=== PATIENT | female | born 1955 | race Two or more races ===

== ENCOUNTER 2019-08-08 11:05 | Inpatient (IN) | payer MEDICAID ==
[~2019-08-08] VITALS: Ht 154.9 cm; Wt 89.1 kg
[2019-08-08 14:25] LABS: Basophils # (auto) 0 uL; Basophils % (auto) 0.2 % (0.0-2.0); Eosinophils # (auto) 0 uL; Eosinophils % (auto) 0.2 % (0.0-7.0); Hematocrit 29.2 % (36.0-46.0); Hemoglobin 9.8 g/dL (12.2-16.2); Lymphocytes # (auto) 0.6 uL; Lymphocytes % (auto) 13.8 % (10.0-50.0); Mean Corpuscular Hemoglobin 35.9 pg (28.0-32.0); Mean Corpuscular Hgb Conc. 33.7 g/dL (32.0-36.0); Mean Corpuscular Volume 106.6 fL (80.0-100.0); Monocytes # (auto) 0.3 uL; Monocytes % (auto) 7.8 % (0.0-12.0); Neutrophils # (auto) 3.3 uL; Nucleated Red Blood Cells % 0.2 %; Platelet Count (auto) 118 10^3/uL (140-450); Red Blood Cells 2.74 10^6/uL (4.0-5.20); White Blood Cell 4.2 10^3/uL (4.4-10.8)
[2019-08-08 14:37] LABS: Albumin 2.4 g/dL (3.4-5.0); Anion Gap 6 (5-15); Blood Urea Nitrogen 25 mg/dL (7-18); Carbon Dioxide 22 mmol/L (21-32); Chloride 106 mmol/L (98-107); Glucose 158 mg/dL (74-106); Magnesium 1.6 mg/dL (1.6-2.6); Sodium 134 mmol/L (136-145)
[2019-08-08 14:44] LABS: Alanine Aminotransferase 30 U/L (13-56); Alkaline Phosphatase 133 U/L (45-117); Aspartate Aminotransferase 33 U/L (15-37); BUN/Creatinine Ratio 23.8; GFR African American 68 mL/min; GFR Non-African American 56 mL/min
[2019-08-08 14:58] LABS: Potassium 5.6 mmol/L (3.5-5.1)
[2019-08-08 16:37] LABS: Urine Bacteria FEW /hpf (None Seen); Urine Blood Negative /uL (Negative); Urine Specific Gravity 1.011 (1.001-1.035); Urine WBC 1 /hpf (0 - 5)
[2019-08-08 16:47] LABS: Alcohol, Urine < 3.0 mg/dL (0-5); Amphetamine Screen, Urine NEGATIVE (NEGATIVE); Barbiturate Scree,Urine NEGATIVE (NEGATIVE); Benzodiazephine Screen, Urine NEGATIVE (NEGATIVE); Cannabinoid Screen, Urine NEGATIVE (NEGATIVE); Cocaine Screen, Urine NEGATIVE (NEGATIVE); Opiate Scree,Urine NEGATIVE (NEGATIVE); Phencyclidine Screen, Urine NEGATIVE (NEGATIVE)
[2019-08-08] MEDS ORDERED: MORPHINE SULF INJ 2 MG/ML SYRINGE 1ML IV PRN (19:00)
[2019-08-08] MEDS ORDERED: NITROGLYCERIN 0.4 MG SL TAB SL PRN (19:00)
[2019-08-08] MEDS ORDERED: SODIUM ZIRCONIUM CYCL 10 GM PAK PO ONE (19:00)
[2019-08-08] MEDS ORDERED: DEXTROSE (50%) 50ML SYRG IV PRN (19:00)
[2019-08-08] MEDS: cefTRIAXone 1GM/50ML D5W 50 ML IV SCH (19:47)
[2019-08-08] MEDS ORDERED: cefTRIAXone 1GM/50ML D5W 50 ML IV SCH (21:00)
--- NOTE | 2019-08-08 21:00 | NUR ---
received pt from er nurse poc reviewed
[2019-08-08] MEDS: InsuLIN REG 1unit/0.01ml Soln (100units/ml) SC SCH (22:00)
[2019-08-08] MEDS: PROPRANOLOL HCL 20 MG TAB PO SCH (22:00)
[2019-08-08 22:28] VITALS: BP 105/54
[2019-08-08 23:30] VITALS: BP 115/57
[2019-08-09] MEDS: ACCU-CHEK COMFORT CURVE STRIP VI SCH ×5 (00:34→21:13)
[2019-08-09 05:31] VITALS: BP 115/57
[2019-08-09] MEDS: InsuLIN REG 1unit/0.01ml Soln (100units/ml) SC SCH ×4 (06:13→21:12)
[2019-08-09 06:45] LABS: Basophils # (auto) 0 uL; Basophils % (auto) 0.4 % (0.0-2.0); Eosinophils # (auto) 0 uL; Hemoglobin 8.4 g/dL (12.2-16.2); Lymphocytes # (auto) 0.4 uL; Monocytes # (auto) 0.2 uL; Neutrophils # (auto) 1.3 uL; Nucleated Red Blood Cells % 0.1 %
[2019-08-09 06:47] LABS: Eosinophils % (auto) 1.7 % (0.0-7.0); Hematocrit 24.6 % (36.0-46.0); Lymphocytes % (auto) 19.1 % (10.0-50.0); Mean Corpuscular Hemoglobin 35.9 pg (28.0-32.0); Mean Corpuscular Hgb Conc. 34.1 g/dL (32.0-36.0); Mean Corpuscular Volume 105.1 fL (80.0-100.0); Monocytes % (auto) 12.4 % (0.0-12.0); Neutrophils % (auto) 66.4 % (37.0-80.0); Platelet Count (auto) 74 10^3/uL (140-450); Red Blood Cells 2.34 10^6/uL (4.0-5.20); Red Cell Distribution Width 16.7 % (11.8-14.3)
[2019-08-09 06:59] LABS: INR 1.17 (0.9-1.15); Partial Thromboplastin Time 26.1 sec (23.64-32.05)
[2019-08-09 07:01] LABS: Albumin 2.1 g/dL (3.4-5.0); Calcium 8.8 mg/dL (8.5-10.1); Potassium 4.2 mmol/L (3.5-5.1)
[2019-08-09 07:05] LABS: BUN/Creatinine Ratio 26.7; Bilirubin, Total 0.5 mg/dL (0.2-1.0); Total Protein 5.9 g/dL (6.4-8.2)
[2019-08-09 08:00] VITALS: BP 104/54
--- NOTE | 2019-08-09 08:00 | NUR ---
ASSESSMENT NOTE PATIENT IS ALERT ORIENTED X4, RESTING IN BED COMFORTABLY, ABLE TO SELF REPOSITION AND VERBALIS HER DEMANDS, HGB 8.4, VERIFY WITH PT THE COLOR OF HER STOOL STATED BLACK THAT WAS YESTERDAY> ENCOURAGE PT NOT TO EAT OR DRINK TILL THE GI MD SEE HER, IN CASE IF HE WILL DO SCOPE, PT VERBALIS UNDERSTANDING, PT SPEAK SOME SWEDISH BUT WAS ABLE TO FOLLOW, CALL LIGHT WITHIN REACH
[2019-08-09] MEDS ORDERED: DOCU-94 PO (08:02)
[2019-08-09] MEDS ORDERED: SPIR100T4 PO (08:02)
[2019-08-09] MEDS ORDERED: PANT40TA2 PO (08:02)
--- NOTE | 2019-08-09 08:30 | NUR ---
PAGE DR DUBOSE
[2019-08-09 09:00] VITALS: BP 108/44
--- NOTE | 2019-08-09 09:00 | NUR ---
FAMILY PATIENT'S DAUGHTER EVELIA AT BED SIDE, AWARE OF HER PT CONDITION
[2019-08-09] MEDS: PANTOPRAZOLE 40 MG TAB PO SCH (09:05)
[2019-08-09] MEDS: cefTRIAXone 1GM/50ML D5W 50 ML IV SCH (09:06)
[2019-08-09] MEDS: PROPRANOLOL HCL 20 MG TAB PO SCH ×2 (09:07→21:12)
--- NOTE | 2019-08-09 12:30 | NUR ---
PAGE DR DUBOSE
[2019-08-09 12:50] LABS: Hepatitis A Ab IgM Negative; Hepatitis B Core IgM Negative; Hepatitis B Surface Antigen Negative (Negative)
[2019-08-09 12:51] LABS: Hepatitis C Antibody Negative (Negative)
--- NOTE | 2019-08-09 13:06 | NUR ---
PER CAREER DEVELOPMENT DIRECTOR DR DUBOSE IS NOT AVAILABLE TODAY
[2019-08-09 13:07] VITALS: BP 108/48
--- NOTE | 2019-08-09 13:30 | NUR ---
DR FLOYD PEREZ CALLED BACK MADE AWARE THAT DR SEDRICK PUGH IS NOT AVAILABLE AND FOR HIM TO DECIDE IF LET US TO CALL DR VALLES, DR FLOYD GARRETT SAID I WILL COME AND SEE MY PT FIRST
--- NOTE | 2019-08-09 16:40 | NUR ---
DR FLOYD GARRETT AT BED SIDE, EXPLAIN TO PT THAT FAT LIVER IT GET WORSE WITH DM, PT STATED THAT SOME FAMILY MEMBER HAS FATTY LIVER, PT DENIES THAT HER STOOL IS BLACK, DR FLOYD GARRETT INFORM PT THAT SHE IS NOT BLEEDING AND SHE CAN EAT, AND WILL FOLLOW ON THE HGB TOMORROW
[2019-08-09 17:09] VITALS: BP 101/43
--- NOTE | 2019-08-09 18:39 | NUR ---
PT CONTINUE STABLE, NO DISTRESS NOTED ,CONTINUE MONITORING
--- NOTE | 2019-08-09 19:54 | NUR ---
received pt from day rn poc reviewed
[2019-08-09 22:26] VITALS: BP 134/47
--- NOTE | 2019-08-10 02:42 | NUR ---
resting with eyes closed no c/o discomfort
[2019-08-10 05:54] VITALS: BP 100/40
[2019-08-10 06:33] LABS: Basophils # (auto) 0 uL; Eosinophils # (auto) 0 uL; Hemoglobin 8.6 g/dL (12.2-16.2); Lymphocytes # (auto) 0.5 uL; Mean Corpuscular Hemoglobin 36.4 pg (28.0-32.0); Monocytes # (auto) 0.2 uL; Red Blood Cells 2.36 10^6/uL (4.0-5.20)
[2019-08-10 06:36] LABS: Basophils % (auto) 0.6 % (0.0-2.0); Eosinophils % (auto) 1.1 % (0.0-7.0); Lymphocytes % (auto) 24.7 % (10.0-50.0); Mean Corpuscular Hgb Conc. 34.3 g/dL (32.0-36.0); Monocytes % (auto) 10.6 % (0.0-12.0); Neutrophils # (auto) 1.2 uL; Nucleated Red Blood Cells % 0.4 %; Platelet Count (auto) 70 10^3/uL (140-450); Red Cell Distribution Width 16.3 % (11.8-14.3)
[2019-08-10 06:41] LABS: BUN/Creatinine Ratio 17.6; Calcium 8.5 mg/dL (8.5-10.1); Potassium 4.3 mmol/L (3.5-5.1)
[2019-08-10] MEDS: ACCU-CHEK COMFORT CURVE STRIP VI SCH ×4 (06:53→22:30)
[2019-08-10] MEDS: InsuLIN REG 1unit/0.01ml Soln (100units/ml) SC SCH ×4 (06:54→22:30)
[2019-08-10 06:59] LABS: Bilirubin, Total 0.8 mg/dL (0.2-1.0); Total Protein 5.9 g/dL (6.4-8.2)
--- NOTE | 2019-08-10 06:59 | NUR ---
report given to am nurse poc reviewed
--- NOTE | 2019-08-10 07:48 | NUR ---
PATIENT ROUNDS PATIENT LYING IN BED, NO DISTRESS NOTED, RR EQUAL AND NONLABORED. BED IN LOWEST POSITION ,SIDE RAILS UP X2, CALL LIGHT WITHIN REACH WILL CONTINUE TO MONITOR.
[2019-08-10 08:00] VITALS: BP 97/49
--- NOTE | 2019-08-10 08:00 | NUR ---
DR GARRETT IN TO SEE PATIENT
[2019-08-10 09:25] VITALS: BP 97/49
[2019-08-10] MEDS: PROPRANOLOL HCL 20 MG TAB PO SCH ×2 (10:00→22:30)
[2019-08-10] MEDS: PANTOPRAZOLE 40 MG TAB PO SCH (10:13)
[2019-08-10] MEDS: cefTRIAXone 1GM/50ML D5W 50 ML IV SCH (10:13)
[2019-08-10 13:11] VITALS: BP 107/78
[2019-08-10 17:34] VITALS: BP 92/48
--- NOTE | 2019-08-10 19:20 | NUR ---
Opening Shift Note Assumed care of patient, awake and alert. No S/S of distress/SOB or pain. Family at the bedside. Instructed on POC and to call for assist PRN, will continue to monitor for changes Q1hr and PRN.
[2019-08-10 22:02] VITALS: BP 105/53
[2019-08-11 05:30] VITALS: BP 100/45
[2019-08-11 06:43] LABS: Hematocrit 24.2 % (36.0-46.0); Hemoglobin 8.3 g/dL (12.2-16.2)
[2019-08-11 06:46] LABS: Mean Corpuscular Hgb Conc. 34.3 g/dL (32.0-36.0); Platelet Count (auto) 68 10^3/uL (140-450); Red Cell Distribution Width 16.1 % (11.8-14.3)
[2019-08-11] MEDS: InsuLIN REG 1unit/0.01ml Soln (100units/ml) SC SCH ×4 (06:49→21:52)
[2019-08-11] MEDS: ACCU-CHEK COMFORT CURVE STRIP VI SCH ×4 (06:49→21:52)
[2019-08-11 07:01] LABS: White Blood Cell 1.8 10^3/uL (4.4-10.8)
[2019-08-11 07:02] LABS: Band Neutrophils % (manual) 0; Basophils % (manual) 0 (0.0-2.0); Blast Cells 0; Metamyelocytes % 0; Myelocytes % 0; Promyelocytes % 0; Reactive Lymphocytes 0
[2019-08-11 07:05] LABS: BUN/Creatinine Ratio 19.5; Calcium 8.1 mg/dL (8.5-10.1); Potassium 4.4 mmol/L (3.5-5.1)
--- NOTE | 2019-08-11 07:07 | NUR ---
Chandrika from chemistry called with critical WBC 1.8, Dr. Swanson notified. Awaiting orders. Will endorse to yony REINOSO.
[2019-08-11 07:08] LABS: Bilirubin, Total 0.7 mg/dL (0.2-1.0); Total Protein 5.7 g/dL (6.4-8.2)
[2019-08-11 07:40] LABS: Eosinophils % (manual) 1 (0-7); Lymphocytes % (manual) 26 (10.0-50.0); Monocytes % (manual) 7 (0-12)
--- NOTE | 2019-08-11 07:40 | NUR ---
OPENING NOTE Assumed care of patient from NOC RN, Sarah. Patient awake and alert with no S/S of distress/SOB or pain. Instructed on POC and to call for assist PRN, verbalized understanding. Bed in lowest, locked position with side rails up x2 and call light within reach. Will continue to monitor for changes Q1hr and PRN.
--- NOTE | 2019-08-11 08:52 | NUR ---
PAGED Dr. Swanson paged regarding critical WBC count, 1.8. Awaiting call back.
[2019-08-11 09:00] VITALS: BP 120/49
--- NOTE | 2019-08-11 09:36 | NUR ---
AT BEDSIDE Dr. Swanson at patient's bedside.
[2019-08-11] MEDS: PROPRANOLOL HCL 20 MG TAB PO SCH ×2 (10:00→21:53)
[2019-08-11] MEDS: cefTRIAXone 1GM/50ML D5W 50 ML IV SCH (10:03)
[2019-08-11] MEDS: PANTOPRAZOLE 40 MG TAB PO SCH (10:03)
--- NOTE | 2019-08-11 12:16 | NUR ---
NUTRITION ASSESSMENT NOTES Please refer to link notes of nutrition screen form filed under the intervention section of the plan of care for further details. Est. Needs: 1300 kcal to 1750 kcal (15-20 kcal/kgBW), 48 gms to 58 gms pro (1.0-1.2 gms/kgIBW : 48 kg). Will continue to monitor pertinent labs and reassess nutrient need prn Thank you. Addendum: 08/11/19 at [address] Amended: Links added.
[2019-08-11 13:00] VITALS: BP 109/60
--- NOTE | 2019-08-11 14:10 | NUR ---
FAMILY Patient's family at bedside.
[2019-08-11 17:31] VITALS: BP 126/81
--- NOTE | 2019-08-11 18:15 | NUR ---
PAGED Patient c/o headache, no prn pain medication available. machine scallop cutter hospitalist paged, awaiting call back.
--- NOTE | 2019-08-11 19:00 | NUR ---
Opening Shift Note Assumed care of patient, awake and alert. No S/S of distress/SOB or pain. Family at the patient bedside. Safety measures in place bed in lowest position, side rails x2 up, and call light within reach. Instructed on POC and to call for assist PRN, will continue to monitor for changes Q1hr and PRN.
[2019-08-11 22:02] VITALS: BP 100/55
--- NOTE | 2019-08-11 22:05 | NUR ---
Dr. Grider recommended patient be placed on neutropenic precautions. Patient will be transferred to an isolation room. Will endorse care to Anjali REINOSO.
--- NOTE | 2019-08-11 23:20 | NUR ---
Transferred care to Anjali REINOSO. Patient free from pain or distress.
--- NOTE | 2019-08-11 23:32 | NUR ---
Transfer Note Received report and assumed care of patient. No signs or symptoms of distress noted. Patient denies pain at this time. Patient is on reverse isolation for neutropenic precautions. Explained plan of care to patient, verbalized understanding and explained to patient to call for assistance as needed. Will continue to monitor.
[2019-08-12 04:49] VITALS: BP 120/61
[2019-08-12] MEDS: ACCU-CHEK COMFORT CURVE STRIP VI SCH ×4 (06:17→21:22)
[2019-08-12] MEDS: InsuLIN REG 1unit/0.01ml Soln (100units/ml) SC SCH ×3 (06:25→21:22)
[2019-08-12 06:41] LABS: Basophils # (auto) 0 uL; Eosinophils # (auto) 0 uL; Lymphocytes # (auto) 0.4 uL; Mean Corpuscular Volume 105.4 fL (80.0-100.0); Monocytes # (auto) 0.2 uL; Nucleated Red Blood Cells % 0.1 %; Platelet Count (auto) 75 10^3/uL (140-450); White Blood Cell 2.3 10^3/uL (4.4-10.8)
[2019-08-12 06:46] LABS: Basophils % (auto) 0.4 % (0.0-2.0); Eosinophils % (auto) 1.9 % (0.0-7.0); Hematocrit 25.9 % (36.0-46.0); Lymphocytes % (auto) 16.3 % (10.0-50.0); Mean Corpuscular Hemoglobin 36.4 pg (28.0-32.0); Mean Corpuscular Hgb Conc. 34.6 g/dL (32.0-36.0); Neutrophils # (auto) 1.7 uL; Neutrophils % (auto) 72.4 % (37.0-80.0); Red Blood Cells 2.46 10^6/uL (4.0-5.20); Red Cell Distribution Width 15.9 % (11.8-14.3)
[2019-08-12 07:02] LABS: % Iron Saturation 26.5 % (15-50)
[2019-08-12 07:03] LABS: Albumin 2.1 g/dL (3.4-5.0); Calcium 8.7 mg/dL (8.5-10.1); Potassium 4.3 mmol/L (3.5-5.1)
[2019-08-12 07:05] LABS: BUN/Creatinine Ratio 17.9
[2019-08-12 07:14] LABS: Bilirubin, Total 0.8 mg/dL (0.2-1.0); Total Protein 6.4 g/dL (6.4-8.2)
--- NOTE | 2019-08-12 07:32 | NUR ---
Closing Shift Note Patient is awake in bed. No signs or symptoms of distress noted. Patient denies pain at this time. Endorsed care to AM nurse.
[2019-08-12 09:00] VITALS: BP 109/44
[2019-08-12] MEDS: PANTOPRAZOLE 40 MG TAB PO SCH (10:31)
[2019-08-12] MEDS: PROPRANOLOL HCL 20 MG TAB PO SCH ×3 (10:32→21:22)
[2019-08-12 13:00] VITALS: BP 118/60
[2019-08-12 17:00] VITALS: BP 98/59
--- NOTE | 2019-08-12 20:00 | NUR ---
Opening Shift Note: A&Ox4, resting in bed. Room air, pain level 0/10, and ambulates independently without assistive devices. Bed locked in lowest position, side rails up x2, and call light within reach. IV left AC 20 g IID inserted on 08/08/19. Skin: generalized bruising; no open wounds. Neutropenic precautions in placed related to low WBC of 2.3. POC discussed and questions answered. Will continue to round prn.
[2019-08-12 21:37] VITALS: BP 106/55
--- NOTE | 2019-08-12 22:00 | NUR ---
2200 Propranolol HCI 40 mg held related to low DBP 104/55
[2019-08-13 04:32] VITALS: BP 113/68
[2019-08-13 05:09] LABS: Basophils # (auto) 0 uL; Basophils % (auto) 0.3 % (0.0-2.0); Eosinophils # (auto) 0 uL; Eosinophils % (auto) 2.8 % (0.0-7.0); Hematocrit 24.2 % (36.0-46.0); Hemoglobin 8.2 g/dL (12.2-16.2); Lymphocytes # (auto) 0.4 uL; Lymphocytes % (auto) 25.5 % (10.0-50.0); Mean Corpuscular Hemoglobin 36.3 pg (28.0-32.0); Mean Corpuscular Volume 106.8 fL (80.0-100.0); Monocytes # (auto) 0.2 uL; Monocytes % (auto) 12.1 % (0.0-12.0); Neutrophils % (auto) 59.3 % (37.0-80.0); Nucleated Red Blood Cells % 0.2 %; Platelet Count (auto) 71 10^3/uL (140-450); Red Blood Cells 2.26 10^6/uL (4.0-5.20)
[2019-08-13 05:16] LABS: White Blood Cell 1.8 10^3/uL (4.4-10.8)
[2019-08-13 05:25] LABS: Albumin 1.9 g/dL (3.4-5.0); BUN/Creatinine Ratio 16.5; Potassium 4.5 mmol/L (3.5-5.1)
[2019-08-13 05:28] LABS: Bilirubin, Total 0.5 mg/dL (0.2-1.0); Total Protein 5.7 g/dL (6.4-8.2)
[2019-08-13] MEDS: InsuLIN REG 1unit/0.01ml Soln (100units/ml) SC SCH ×4 (06:01→22:12)
[2019-08-13] MEDS: ACCU-CHEK COMFORT CURVE STRIP VI SCH ×4 (06:01→22:12)
--- NOTE | 2019-08-13 07:25 | NUR ---
Open Shift Note Received report on patient, awake and sitting up in bed. Patient shows no signs of distress at this time. Discussed POC with patient with use of auto radiator mechanic, patient verbalized understanding. Bed in lowest locked position, side rails up x2 and call light within reach. Will continue to monitor.
[2019-08-13 08:33] LABS: Ferritin 338.2 ng/mL (10-322)
[2019-08-13 08:35] LABS: Folate (Folic Acid) 13.65 ng/mL (5.38-24)
--- NOTE | 2019-08-13 08:49 | NUR ---
Paged Dr Grider Paged dr Grider in regards to critical WBC 1.8 and if he would like to test bone marrow, per Dr Swanson's request.
[2019-08-13 09:00] VITALS: BP 119/55
--- NOTE | 2019-08-13 09:40 | NUR ---
Paged Dr Swanson Paged Dr Swanson to inform him that Dr Grider returned call and stated he does not want to test her bone marrow because he believes her low WBC is due to the liver. Dr Grider also stated she is cleared for discharge from his perspective and for her to follow up outpatient in one-two weeks. Awaiting call back/new orders from Dr Swanson.
[2019-08-13] MEDS: PANTOPRAZOLE 40 MG TAB PO SCH (10:58)
[2019-08-13 13:00] VITALS: BP 96/41
[2019-08-13] MEDS: PROPRANOLOL HCL 20 MG TAB PO SCH ×2 (13:07→22:00)
[2019-08-13 17:00] VITALS: BP 131/73
--- NOTE | 2019-08-13 19:30 | NUR ---
Opening Shift Note Assumed care of patient, awake and alert. No S/S of distress/SOB or pain. Instructed on POC and to call for assist PRN, will continue to monitor for changes Q1hr and PRN.
--- NOTE | 2019-08-13 22:00 | NUR ---
2200 Propranolol HCI 40 mg held related to low BP 108/65
[2019-08-13 22:42] VITALS: BP 108/65
[2019-08-14 05:13] LABS: Basophils # (auto) 0 uL; Basophils % (auto) 1.3 % (0.0-2.0); Eosinophils # (auto) 0.1 uL; Eosinophils % (auto) 2.7 % (0.0-7.0); Hematocrit 23.5 % (36.0-46.0); Hemoglobin 7.9 g/dL (12.2-16.2); Lymphocytes # (auto) 0.5 uL; Lymphocytes % (auto) 24.9 % (10.0-50.0); Mean Corpuscular Hemoglobin 35.9 pg (28.0-32.0); Mean Corpuscular Hgb Conc. 33.8 g/dL (32.0-36.0); Mean Corpuscular Volume 106.3 fL (80.0-100.0); Monocytes # (auto) 0.3 uL; Monocytes % (auto) 13.5 % (0.0-12.0); Neutrophils # (auto) 1.1 uL; Neutrophils % (auto) 57.6 % (37.0-80.0); Nucleated Red Blood Cells % 0.4 %; Platelet Count (auto) 69 10^3/uL (140-450); Red Blood Cells 2.21 10^6/uL (4.0-5.20); Red Cell Distribution Width 16.4 % (11.8-14.3)
[2019-08-14 05:15] LABS: White Blood Cell 1.9 10^3/uL (4.4-10.8)
--- NOTE | 2019-08-14 05:15 | NUR ---
Received phone call from Sb in Hematology reporting Critical WBC of 1.9. An increases from the last draw of 1.8. Dr. Swanson is aware that patient has a critical WBC level.
[2019-08-14 05:20] LABS: Calcium 8.1 mg/dL (8.5-10.1); Potassium 4.4 mmol/L (3.5-5.1)
[2019-08-14 05:21] VITALS: BP 99/47
[2019-08-14 05:34] LABS: BUN/Creatinine Ratio 19.5; Bilirubin, Total 0.7 mg/dL (0.2-1.0); Total Protein 5.5 g/dL (6.4-8.2)
[2019-08-14] MEDS: InsuLIN REG 1unit/0.01ml Soln (100units/ml) SC SCH ×2 (06:06→11:30)
[2019-08-14] MEDS: ACCU-CHEK COMFORT CURVE STRIP VI SCH ×2 (06:06→12:30)
[2019-08-14 08:00] VITALS: BP 108/65
[2019-08-14 09:00] VITALS: BP 101/49
[2019-08-14] MEDS: PROPRANOLOL HCL 20 MG TAB PO SCH (10:00)
[2019-08-14] MEDS: PANTOPRAZOLE 40 MG TAB PO SCH (10:19)
[2019-08-14 11:58] VITALS: BP 101/49
--- NOTE | 2019-08-14 15:20 | NUR ---
assessment Patient discharged prior to being assessed. Addendum: 08/15/19 at 1135 by Holly RUIZ Amended: Links added.
== END 2019-08-14 12:21 | disposition home or self-care (01) | DRG 422 ==
LOC: ER 11:05 → TELE 11:06 → TELE-EAST 20:50 → TELE-CENTR 08-11 23:30
PROVIDERS: ADMIT Nurse Practitioner Acute Care; ATTEND Internal Medicine
DX: E87.5 Hyperkalemia (principal); E86.0 Dehydration; E43 Unspecified severe protein-calorie malnutrition; D61.818 Other pancytopenia; J90 Pleural effusion, not elsewhere classified; E11.22 Type 2 diabetes mellitus with diabetic chronic kidney disease; J44.1 Chronic obstructive pulmonary disease with (acute) exacerbation; K76.6 Portal hypertension; R18.8 Other ascites; K72.90 Hepatic failure, unspecified without coma; K74.60 Unspecified cirrhosis of liver; K21.9 Gastro-esophageal reflux disease without esophagitis; N18.3 Chronic kidney disease, stage 3 (moderate); D63.8 Anemia in other chronic diseases classified elsewhere; M25.50 Pain in unspecified joint; E66.9 Obesity, unspecified; E87.6 Hypokalemia; I12.9 Hypertensive chronic kidney disease with stage 1 through stage 4 chronic kidney disease, or unspecified chronic kidney disease; K57.10 Diverticulosis of small intestine without perforation or abscess without bleeding; Z79.84 Long term (current) use of oral hypoglycemic drugs; Z80.6 Family history of leukemia; Z68.37 Body mass index [BMI] 37.0-37.9, adult; Z82.49 Family history of ischemic heart disease and other diseases of the circulatory system; Z87.11 Personal history of peptic ulcer disease; Z83.3 Family history of diabetes mellitus
CPT/HCPCS: 36415; 71046; 74176; 80053; 80074; 80307; 81001; 82140; 82607; 82728; 82746; 82962; 83036; 83540; 83550; 83615; 83735; 83880; 84132; 84484; 85007; 85025; 85027; 85610; 85652; 85730; 86141; 86880; 93005; G0378; J0696; J1815

== ENCOUNTER 2019-08-23 22:23 | Inpatient (IN) | payer MEDICAID ==
[~2019-08-23] VITALS: Ht 160 cm; Wt 92.5 kg
[~2019-08-23 22:23] MED LIST: PANT40TA2 PO; SPIR100T4 PO
[2019-08-23 22:57] LABS: Mean Corpuscular Volume 107.9 fL (80.0-100.0); White Blood Cell 5.8 10^3/uL (4.4-10.8)
[2019-08-23 22:58] LABS: Hematocrit 32.9 % (36.0-46.0); Hemoglobin 11.2 g/dL (12.2-16.2); Mean Corpuscular Hemoglobin 36.6 pg (28.0-32.0); Mean Corpuscular Hgb Conc. 33.9 g/dL (32.0-36.0); Platelet Count (auto) 134 10^3/uL (140-450); Red Blood Cells 3.05 10^6/uL (4.0-5.20); Red Cell Distribution Width 18.1 % (11.8-14.3)
[2019-08-23 23:00] LABS: Basophils % (manual) 0 (0.0-2.0); Blast Cells 0; Eosinophils % (manual) 0 (0-7); Metamyelocytes % 0; Myelocytes % 0; Promyelocytes % 0; Reactive Lymphocytes 0
[2019-08-23] MEDS ORDERED: ONDANSETRON ODT 4 MG TAB PO ONE (23:00)
[2019-08-23] MEDS ORDERED: ACETAMINOPHEN 325 MG TAB PO ONE (23:00)
[2019-08-23 23:13] LABS: INR 1.18 (0.9-1.15); Partial Thromboplastin Time 25.8 sec (23.64-32.05)
[2019-08-23 23:16] LABS: Band Neutrophils % (manual) 16; Lymphocytes % (manual) 5 (10.0-50.0); Monocytes % (manual) 2 (0-12)
[2019-08-23 23:17] LABS: Alanine Aminotransferase 27 U/L (13-56); Albumin 2.4 g/dL (3.4-5.0); Anion Gap 11 (5-15); Aspartate Aminotransferase 39 U/L (15-37); BUN/Creatinine Ratio 18.5; Blood Urea Nitrogen 27 mg/dL (7-18); Calcium 8.8 mg/dL (8.5-10.1); Carbon Dioxide 18 mmol/L (21-32); Chloride 108 mmol/L (98-107); GFR African American 47 mL/min; GFR Non-African American 39 mL/min; Glucose 104 mg/dL (74-106); Potassium 4.5 mmol/L (3.5-5.1); Sodium 137 mmol/L (136-145)
[2019-08-23 23:22] LABS: Alkaline Phosphatase 143 U/L (45-117); Bilirubin, Total 1.3 mg/dL (0.2-1.0); Total Protein 6.8 g/dL (6.4-8.2)
[2019-08-23] MEDS ORDERED: SODIUM CHLORIDE 0.9% 1,000 ML IV ONE ×3 (23:30→23:47)
[2019-08-24] VITALS (13 sets, daily range): BP systolic 106–133; BP diastolic 40–59
[2019-08-24] MEDS ORDERED: FUROSEMIDE 20 MG/2 ML VIAL IV ONE
[2019-08-24] MEDS ORDERED: PIPERACILLIN-TAZOB 3.375GM 100 ML IV ONE
[2019-08-24] MEDS ORDERED: ONDANSETRON HCL 4 MG/2 ML VIAL IV PRN (00:30)
[2019-08-24] MEDS ORDERED: MORPHINE SULF INJ 2 MG/ML SYRINGE 1ML IV PRN (00:30)
[2019-08-24] MEDS ORDERED: DEXTROSE (50%) 50ML SYRG IV PRN (00:30)
[2019-08-24] MEDS ORDERED: TEMAZEPAM 15 MG CAP PO PRN (00:30)
[2019-08-24] MEDS ORDERED: NITROGLYCERIN 0.4 MG SL TAB SL PRN (00:30)
[2019-08-24] MEDS: NOREPINEPHRINE 8 MG/250ML KIT 250 ML IV SCH (00:35)
[2019-08-24] MEDS ORDERED: ALBUMIN 5% 250 ML IV ONE ×2 (01:00→01:30)
[2019-08-24 01:13] LABS: Lactic Acid w/Reflex 2.8 mmol/L (0.4-2.0)
[2019-08-24] MEDS ORDERED: SODIUM CHLORIDE 0.9% 1,000 ML IV ONE (01:15)
[2019-08-24] MEDS ORDERED: VANCOMYCIN PER PHARMACY 0 MG IV SCH (01:30)
[2019-08-24] MEDS ORDERED: VANCOMYCIN 1GM/250ML 250 ML IV SCH (02:00)
[2019-08-24] MEDS ORDERED: VANCOMYCIN 500 MG in D5W 5% 100 ML IV SCH (04:00)
[2019-08-24] MEDS: InsuLIN REG 1unit/0.01ml Soln (100units/ml) SC SCH ×4 (06:00→23:55)
[2019-08-24] MEDS: ACCU-CHEK COMFORT CURVE STRIP VI SCH ×4 (06:00→23:55)
[2019-08-24] MEDS: PIPERACILLIN-TAZOB 2.25GM 50 ML IV SCH ×4 (06:40→23:55)
[2019-08-24] MEDS: SODIUM CHLORIDE 0.9% 1,000 ML IV SCH ×2 (09:24→13:59)
[2019-08-24] MEDS: PANTOPRAZOLE 40 MG TAB PO SCH (09:24)
[2019-08-24] MEDS ORDERED: LEVOFLOXACIN 250MG 50 ML IV SCH (10:00)
[2019-08-24 10:39] LABS: Urine WBC None Seen /hpf (0 - 5)
[2019-08-24 11:01] LABS: Urine Bacteria NONE SEEN /hpf (None Seen); Urine Blood 3+ /uL (Negative); Urine Specific Gravity 1.013 (1.001-1.035)
[2019-08-24 13:26] LABS: Calcium 7.8 mg/dL (8.5-10.1); Potassium 4.7 mmol/L (3.5-5.1)
[2019-08-24 13:29] LABS: BUN/Creatinine Ratio 16.9
[2019-08-24 13:31] LABS: Basophils # (auto) 0 uL; Eosinophils # (auto) 0 uL; Hemoglobin 9.2 g/dL (12.2-16.2); Nucleated Red Blood Cells % 0.2 %
[2019-08-24 13:32] LABS: Basophils % (auto) 0.3 % (0.0-2.0); Eosinophils % (auto) 0.1 % (0.0-7.0); Hematocrit 27.5 % (36.0-46.0); Lymphocytes # (auto) 0.4 uL; Lymphocytes % (auto) 2.8 % (10.0-50.0); Mean Corpuscular Hemoglobin 36.1 pg (28.0-32.0); Mean Corpuscular Hgb Conc. 33.6 g/dL (32.0-36.0); Mean Corpuscular Volume 107.4 fL (80.0-100.0); Monocytes # (auto) 0.5 uL; Monocytes % (auto) 3.6 % (0.0-12.0); Neutrophils # (auto) 12.2 uL; Neutrophils % (auto) 93.2 % (37.0-80.0); Platelet Count (auto) 109 10^3/uL (140-450); Red Blood Cells 2.56 10^6/uL (4.0-5.20); Red Cell Distribution Width 17.9 % (11.8-14.3); White Blood Cell 13.1 10^3/uL (4.4-10.8)
--- NOTE | 2019-08-24 19:50 | NUR ---
Pt being admitted to ICU LUCY ARAGON admitted to ICU via gurney on hydrometeorology teacher, and portable 02. Patient transfered to bed, connected to ICU monitoring and oxygen, [facility]. Patient oriented to Luisa Walsh, primary RN, unit, room, bed, and unit policies regarding patient care and visiting hours. All questions and concerns addressed, patient verbalized understanding. NOTE: PT TO UNIT A&O X 4. MOSTLY UZBEK SPEAKING. SR ON GRINDER DRESSER. LEVOPHED GTT INFUSING AT 16 MCG/MIN. NS INFUSING AT 75 ML/HR. R. IJ TLC IN PLACE. NO SKIN BREAKDOWN. PT DENEIS PAIN. DENIES NAUSEA. PT EDUCATED REGARDING USE OF CALL CAN. PT ABLE TO DEMONSTRATE USE. PT EDUCATED TO NOT ATTEMPT TO GET OOB WITHOUT ASSISTANCE. PT VERBALIZES UNDERSTANDING. BED IN LOWEST LOCKED POSITON. SIDE RAILS UP X 2.
[2019-08-24] MEDS ORDERED: LIDOCAINE VISCOUS 2% 15ML UD ONE (19:57)
--- NOTE | 2019-08-24 20:00 | NUR ---
FAMILY TO BEDSIDE PT DAUGHTER EVELIA AND [facility] TO BEDSIDE. PT DAUGHTER EVELIA ASSISTS WITH INTERPRETATION FOR ADMISSION QUESTIONS. PASSWORD FOR PHONE ESTABLISHED.
[2019-08-25] VITALS (49 sets, daily range): BP systolic 97–134; BP diastolic 26–67
[2019-08-25] MEDS ORDERED: GLUC-244 (00:44)
[2019-08-25] MEDS ORDERED: METF-372 (00:44)
[2019-08-25] MEDS ORDERED: FERR-20 (00:44)
[2019-08-25] MEDS ORDERED: URSO300C9 (00:44)
[2019-08-25] MEDS ORDERED: GLIP5TAB12 (00:44)
[2019-08-25] MEDS ORDERED: LISI-646 (00:44)
[2019-08-25] MEDS ORDERED: OXYB10TA14 (00:44)
[2019-08-25] MEDS ORDERED: ATOR20TA50 (00:44)
[2019-08-25] MEDS ORDERED: INFLUENZA QUAD 2019-2020 0.5ml SYRG IM ONE ×2 (01:00→05:30)
[2019-08-25] MEDS: NOREPINEPHRINE 8 MG/250ML KIT 250 ML IV SCH ×2 (02:30)
[2019-08-25] MEDS: SODIUM CHLORIDE 0.9% 1,000 ML IV SCH ×2 (03:10→12:03)
[2019-08-25 04:11] LABS: Basophils # (auto) 0.1 uL
[2019-08-25 04:15] LABS: Basophils % (auto) 0.7 % (0.0-2.0); Eosinophils # (auto) 0.1 uL; Eosinophils % (auto) 0.9 % (0.0-7.0); Hematocrit 24.7 % (36.0-46.0); Hemoglobin 8.6 g/dL (12.2-16.2); Lymphocytes # (auto) 0.5 uL; Lymphocytes % (auto) 5.9 % (10.0-50.0); Mean Corpuscular Hemoglobin 37.1 pg (28.0-32.0); Mean Corpuscular Hgb Conc. 35.1 g/dL (32.0-36.0); Mean Corpuscular Volume 105.8 fL (80.0-100.0); Monocytes # (auto) 0.9 uL; Monocytes % (auto) 10.8 % (0.0-12.0); Neutrophils # (auto) 6.7 uL; Neutrophils % (auto) 81.7 % (37.0-80.0); Nucleated Red Blood Cells % 0.1 %; Platelet Count (auto) 70 10^3/uL (140-450); Red Blood Cells 2.33 10^6/uL (4.0-5.20); Red Cell Distribution Width 17.3 % (11.8-14.3); White Blood Cell 8.2 10^3/uL (4.4-10.8)
[2019-08-25 04:33] LABS: Albumin 2.2 g/dL (3.4-5.0); Calcium 7.8 mg/dL (8.5-10.1); Potassium 4.1 mmol/L (3.5-5.1)
[2019-08-25 04:35] LABS: BUN/Creatinine Ratio 18.8
[2019-08-25 04:38] LABS: Bilirubin, Total 1.3 mg/dL (0.2-1.0); Total Protein 5.9 g/dL (6.4-8.2)
[2019-08-25] MEDS: ACCU-CHEK COMFORT CURVE STRIP VI SCH ×3 (05:26→18:00)
[2019-08-25] MEDS: InsuLIN REG 1unit/0.01ml Soln (100units/ml) SC SCH ×3 (05:26→18:01)
[2019-08-25] MEDS: PIPERACILLIN-TAZOB 2.25GM 50 ML IV SCH ×3 (05:26→18:04)
--- NOTE | 2019-08-25 07:30 | NUR ---
Opening Shift Note Assumed care of patient, awake and alert. No S/S of distress/SOB or pain. Instructed on POC and to call for assist PRN, will continue to monitor for changes Q1hr and PRN. bed in low position and call light within reach.
--- NOTE | 2019-08-25 09:50 | NUR ---
DR. GARRETT HERE TO SEE PATIENT. SEE MD NOTES AND EMR FOR ANY NEW ORDERS.
[2019-08-25] MEDS: PANTOPRAZOLE 40 MG TAB PO SCH (10:00)
[2019-08-25] MEDS ORDERED: VANCOMYCIN 1GM/250ML 250 ML IV ONE (11:00)
--- NOTE | 2019-08-25 12:00 | NUR ---
DR. DUBOSE HERE TO SEE PATIENT. SEE MD NOTES AND EMR FOR ANY NEW ORDERS.
[2019-08-25] MEDS ORDERED: LACTULOSE 20Gm/30ML SOLN PO PRN (15:45)
--- NOTE | 2019-08-25 16:32 | NUR ---
Received patient via wheelchair from ICU. Patient awake, oriented x4, on Magdaleno catheter draining light isaac urine, coughing noted. On O2 at 2 LPM via nasal cannula.
--- NOTE | 2019-08-25 16:32 | NUR ---
ICU patient trans to floor LUCY ARAGON transferred to [facility] via gurney on youth nutritional monitor and portable 02. All patient medications and personal belongings transferred with patient to receiving floor. Patient care transferred to OMEGA REINOSO.
[2019-08-26] MEDS: PIPERACILLIN-TAZOB 2.25GM 50 ML IV SCH ×4 (00:20→18:22)
[2019-08-26] MEDS: InsuLIN REG 1unit/0.01ml Soln (100units/ml) SC SCH ×4 (00:20→18:22)
[2019-08-26] MEDS: ACCU-CHEK COMFORT CURVE STRIP VI SCH ×4 (00:20→18:21)
--- NOTE | 2019-08-26 00:20 | NUR ---
Educated patient on IS.patient verbalized understanding, patient returned demonstration.
--- NOTE | 2019-08-26 01:05 | NUR ---
ekg performed 12 lead ekg which showed sinus rhythm with BBB HR 98, VS 124/67 b/p , hr 83, [id number] 99, temperature 98.0, rr 21. Patient denies Sob or pain. patient laying in bed will continue to monitor. bed in low position and call light within reach.
--- NOTE | 2019-08-26 01:16 | NUR ---
ekg paged MD mauro left call back information. patient had 6 sec Afib RVR HR 164 at 0048 . performed 12 lead ekg which showed sinus rhythm with BBB HR 98, VS 124/67 b/p , hr 83, [id number] 99, temperature 98.0, rr 21. Patient denies Sob or pain.
--- NOTE | 2019-08-26 01:50 | NUR ---
ROUNDS PATIENT IS IN BED. BILATERAL CHEST RISE AND FALL RR 20. SHOWS NO SIGNS OF DISTRESS OR SOB.
--- NOTE | 2019-08-26 02:55 | NUR ---
ROUNDS PATIENT IS IN BED. BILATERAL CHEST RISE AND FALL RR 19. SHOWS NO SIGNS OF DISTRESS OR SOB. PAGED TAMI. NO CALL BACK FROM .
--- NOTE | 2019-08-26 04:31 | NUR ---
PATIENT ROUNDS PATIENT IS IN BED AWAKE PATIENT REQUESTED A BLANKET. DENIES SOB OR PAIN. BED IN LOW POSITION AND CALL LIGHT WITHIN REACH. BED ALARM ON.
[2019-08-26 05:00] VITALS: BP 121/61
--- NOTE | 2019-08-26 06:20 | NUR ---
PATIENT ROUNDS PATIENT IS IN BED SLEEPING, WITH BILATERAL CHEST RISE AND FALL RR20. SHOWING NO SIGNS OF DISTRESS/SOB/ OR PAIN. BED IN LOW POSITION AND CALL LIGHT WITHIN REACH.
--- NOTE | 2019-08-26 07:22 | NUR ---
REPORT GIVEN TO CATHY RN. ENDORSED CARE TO RN ALSO OF CHRIS BACK FROM TAMI. INFORMED RN MD WAS PAGED PERTAINING TO EPISODE OF AFIB NO CALL BACK.
[2019-08-26 07:39] LABS: Basophils # (auto) 0 uL; Eosinophils # (auto) 0.1 uL; Lymphocytes # (auto) 0.3 uL; Mean Corpuscular Hemoglobin 36.6 pg (28.0-32.0); Monocytes # (auto) 0.4 uL
[2019-08-26 07:41] LABS: Albumin 1.8 g/dL (3.4-5.0); Basophils % (auto) 0.3 % (0.0-2.0); Calcium 7.6 mg/dL (8.5-10.1); Hematocrit 23.5 % (36.0-46.0); Lymphocytes % (auto) 8.9 % (10.0-50.0); Mean Corpuscular Volume 107.5 fL (80.0-100.0); Neutrophils # (auto) 3.1 uL; Neutrophils % (auto) 78.8 % (37.0-80.0); Platelet Count (auto) 49 10^3/uL (140-450); Potassium 4.4 mmol/L (3.5-5.1); Red Blood Cells 2.19 10^6/uL (4.0-5.20); Red Cell Distribution Width 17.2 % (11.8-14.3); White Blood Cell 3.9 10^3/uL (4.4-10.8)
[2019-08-26 07:44] LABS: Bilirubin, Total 0.8 mg/dL (0.2-1.0); Total Protein 5.3 g/dL (6.4-8.2)
--- NOTE | 2019-08-26 07:45 | NUR ---
Patient asleep, on O2 at 2 LPM, no acute distress noted. On Magdaleno catheter.
[2019-08-26 09:00] VITALS: BP 106/48
--- NOTE | 2019-08-26 09:43 | NUR ---
Called pharmacy for Vancomycin HCL drip. Pharmacist to prepare the medication.
[2019-08-26] MEDS ORDERED: VANCOMYCIN 1,250 MG in D5W 5% 250 ML IV ONE (10:00)
[2019-08-26] MEDS: PANTOPRAZOLE 40 MG TAB PO SCH (10:34)
--- NOTE | 2019-08-26 11:25 | NUR ---
Dr. Swanson, O. at bedside. spoke with the patient regarding Thoracentesis and Paracentesis for tomorrow, Tuesday. Dr. Swanson ordered Physical Therapy. KEMAR Ledezma translated in Kazakh for the patient.
[2019-08-26] MEDS: SODIUM CHLORIDE 0.9% 1,000 ML IV SCH (11:44)
[2019-08-26 13:00] VITALS: BP 105/55
--- NOTE | 2019-08-26 13:15 | NUR ---
Patient walking on the hallway with family.
--- NOTE | 2019-08-26 15:10 | NUR ---
Physical Therapy (PT) called. PT made aware patient is ambulatory, able to walk on the hallway with family earlier. PT to see the patient for physical therapy/
--- NOTE | 2019-08-26 16:24 | NUR ---
Called Pharmacy that the Levophed drip is still on the E nov when the patient was downgraded to Telemetry from ICU yesterday afternoon. Pharmacist to discontinue the Levophed order.
--- NOTE | 2019-08-26 16:26 | NUR ---
Spoke with pt. She states that she ambulated in the dahl independently today without any difficulty. She has a 4WW to use at home if needed but she does not typically ambulate with an assistive device. Pt reports no history of falls in the past year. She does not require skilled physical therapy at this time. If pt condition should change, we will evaluate as needed.
[2019-08-26 17:00] VITALS: BP 126/66
--- NOTE | 2019-08-26 17:18 | NUR ---
Heart Rate on Telemetry >120. Patient walking on the hallway with the son.
[2019-08-26 22:00] VITALS: BP 122/65
[2019-08-27] MEDS: PIPERACILLIN-TAZOB 2.25GM 50 ML IV SCH ×2 (00:16→05:45)
[2019-08-27] MEDS: ACCU-CHEK COMFORT CURVE STRIP VI SCH ×5 (00:18→23:39)
[2019-08-27 04:54] VITALS: BP 107/48
[2019-08-27] MEDS: InsuLIN REG 1unit/0.01ml Soln (100units/ml) SC SCH ×4 (05:45→18:19)
--- NOTE | 2019-08-27 07:30 | NUR ---
endorsed care to dayshift rn. patient is in bed sleeping. shows no signs of distress of sob reports no pain
[2019-08-27 08:33] LABS: Basophils # (auto) 0 uL; Basophils % (auto) 0.7 % (0.0-2.0); Eosinophils # (auto) 0.1 uL; Lymphocytes # (auto) 0.3 uL; Monocytes # (auto) 0.4 uL; Monocytes % (auto) 14.7 % (0.0-12.0); Neutrophils % (auto) 69.8 % (37.0-80.0); Nucleated Red Blood Cells % 0.1 %; Red Blood Cells 2.14 10^6/uL (4.0-5.20); White Blood Cell 2.5 10^3/uL (4.4-10.8)
[2019-08-27 08:34] LABS: Eosinophils % (auto) 2.9 % (0.0-7.0); Hemoglobin 7.7 g/dL (12.2-16.2); Lymphocytes % (auto) 11.9 % (10.0-50.0); Mean Corpuscular Hgb Conc. 33.6 g/dL (32.0-36.0); Mean Corpuscular Volume 107.3 fL (80.0-100.0); Neutrophils # (auto) 1.7 uL; Platelet Count (auto) 46 10^3/uL (140-450); Red Cell Distribution Width 17.1 % (11.8-14.3)
[2019-08-27 08:49] LABS: INR 1.25 (0.9-1.15); Partial Thromboplastin Time 35.2 sec (23.64-32.05)
[2019-08-27 09:00] VITALS: BP 116/49
[2019-08-27] MEDS: PANTOPRAZOLE 40 MG TAB PO SCH (09:41)
[2019-08-27] MEDS ORDERED: LEVOFLOXACIN 500MG 100 ML IV ONE (10:15)
[2019-08-27] MEDS: VANCOMYCIN 1GM/250ML 250 ML IV SCH (11:56)
[2019-08-27] MEDS: SODIUM CHLORIDE 0.9% 1,000 ML IV SCH (11:56)
--- NOTE | 2019-08-27 12:14 | NUR ---
Off Unit Patient left unit with sow farm barn technician for thoracentesis.
--- NOTE | 2019-08-27 12:45 | NUR ---
PT IN ULTRASOUND FOR A THORACENTESIS. [id number]%. 1200 ML OF PLEURAL FLUID REMOVED AND SENT TO THE LAB. POST CXR DONE
[2019-08-27 13:00] VITALS: BP 115/56
--- NOTE | 2019-08-27 13:00 | NUR ---
On Unit Patient returned to the unit in wheelchair, no obvious distress observed. Care continues.
[2019-08-27] MEDS: ACETAMINOPHEN 325 MG TAB PO PRN (13:28)
[2019-08-27 17:00] VITALS: BP 107/55
--- NOTE | 2019-08-27 19:30 | NUR ---
Opening Shift Note Assumed care of patient, awake and alert. No S/S of distress/SOB or pain. Family at bedside. Instructed on POC and to call for assist PRN, will continue to monitor for changes Q1hr and PRN.
[2019-08-27 21:52] VITALS: BP 123/56
[2019-08-27] MEDS ORDERED: BUMETANIDE 1mg/4ml VIAL (0.25mg/ml) IV SCH (22:00)
[2019-08-28] MEDS: InsuLIN REG 1unit/0.01ml Soln (100units/ml) SC SCH ×5 (00:16→23:36)
[2019-08-28] MEDS: VANCOMYCIN 1GM/250ML 250 ML IV SCH ×2 (02:25→18:37)
[2019-08-28 05:00] VITALS: BP 135/66
[2019-08-28] MEDS: ACCU-CHEK COMFORT CURVE STRIP VI SCH ×4 (06:27→23:36)
[2019-08-28] MEDS: ACETAMINOPHEN 325 MG TAB PO PRN (07:22)
--- NOTE | 2019-08-28 07:32 | NUR ---
Opening Shift Note Assumed care of patient, awake and alert, sitting up in bed. No S/S of distress/SOB or pain. Instructed on POC and to call for assist PRN, will continue to monitor for changes Q1hr and PRN.
[2019-08-28 07:50] LABS: Basophils # (auto) 0 uL; Eosinophils # (auto) 0.1 uL; Hemoglobin 8.3 g/dL (12.2-16.2); Lymphocytes # (auto) 0.3 uL; Mean Corpuscular Hemoglobin 35.9 pg (28.0-32.0); Monocytes # (auto) 0.4 uL; Neutrophils # (auto) 1.7 uL; Nucleated Red Blood Cells % 0.1 %; Red Blood Cells 2.31 10^6/uL (4.0-5.20)
[2019-08-28 07:55] LABS: Basophils % (auto) 0.6 % (0.0-2.0); Eosinophils % (auto) 2.3 % (0.0-7.0); Hematocrit 24.5 % (36.0-46.0); Lymphocytes % (auto) 10.7 % (10.0-50.0); Mean Corpuscular Hgb Conc. 33.8 g/dL (32.0-36.0); Mean Corpuscular Volume 106.3 fL (80.0-100.0); Monocytes % (auto) 16.3 % (0.0-12.0); Neutrophils % (auto) 70.1 % (37.0-80.0); Platelet Count (auto) 52 10^3/uL (140-450); Red Cell Distribution Width 16.3 % (11.8-14.3); White Blood Cell 2.5 10^3/uL (4.4-10.8)
[2019-08-28 08:00] LABS: Albumin 1.9 g/dL (3.4-5.0); Calcium 7.7 mg/dL (8.5-10.1); Potassium 4.1 mmol/L (3.5-5.1)
[2019-08-28 08:03] LABS: Bilirubin, Total 0.7 mg/dL (0.2-1.0); Total Protein 5.5 g/dL (6.4-8.2)
[2019-08-28 08:14] VITALS: BP 132/62
--- NOTE | 2019-08-28 08:15 | NUR ---
Daughter at bedside.
[2019-08-28] MEDS: PANTOPRAZOLE 40 MG TAB PO SCH (09:31)
[2019-08-28] MEDS: BUMETANIDE 1mg/4ml VIAL (0.25mg/ml) IV SCH (09:32)
[2019-08-28] MEDS: LEVOFLOXACIN 500MG 100 ML IV SCH (09:32)
--- NOTE | 2019-08-28 10:15 | NUR ---
Hospitalist Alvaroing Dr. Swanson at bedside.
--- NOTE | 2019-08-28 10:35 | NUR ---
Magdaleno catheter dc'd Order to discontinue Magdaleno Catheter. Magdaleno dc'd with clean technique following deflation of balloon. Patient tolerated well with no complaints of pain. Continue care.
--- NOTE | 2019-08-28 11:26 | NUR ---
Nutrition Assessment Notes Please see attached link for complete assessment Est. Needs ABW 71 [id number] kcal (20-23kcal/kgBW), 71-85 gms pro (1.0-1.2 gms/kgBW r/t severe hypoalb). Will continue to monitor pertinent labs and reassess nutrient need prn Addendum: 08/28/19 at [address] Amended: Links added.
[2019-08-28] MEDS: SODIUM CHLORIDE 0.9% 1,000 ML IV SCH (12:00)
[2019-08-28 12:45] VITALS: BP 124/88
--- NOTE | 2019-08-28 14:20 | NUR ---
Assessment Pt is a 63 yr old alert and oriented female. Pt speaks Turkish and gave permission for son, Tristen Alfonso, to answer questions. Son is emergency contact at [phone]. Pt ambulates with a walker but is getting weaker and requested a w/c. SW had pt's nurse put in a consult for the PT to do an evaluation. Pt is independent with ADL's, and family helps with cooking and cleaning. Pt was admitted to hospital due to weakness, SOB, fever, and being delusional. Pt stated that she has pneumonia. Pt receives income. Pt stated that she has an AD naming Miladis Quezada and Eze Gil her POA's but no copy is on file here. Pt's family will transport home upon d/c. Pt would benefit from the use of a w/c in order to assist with safe ambulation. Pt would also benefit from receiving services for PT. Addendum: 08/28/19 at 1430 by MODESTO GERBER Amended: Links added.
[2019-08-28 16:26] VITALS: BP 119/52
--- NOTE | 2019-08-28 19:30 | NUR ---
Opening Shift Note Assumed care of patient, awake and alert. No S/S of distress/SOB or pain. Instructed on POC and to call for assist PRN, will continue to monitor for changes Q1hr and PRN.
[2019-08-28 22:00] VITALS: BP 138/63
[2019-08-29 05:00] VITALS: BP 123/65
[2019-08-29] MEDS: InsuLIN REG 1unit/0.01ml Soln (100units/ml) SC SCH ×4 (05:56→23:50)
[2019-08-29] MEDS: ACCU-CHEK COMFORT CURVE STRIP VI SCH ×4 (05:56→23:50)
[2019-08-29 07:33] LABS: Basophils # (auto) 0 uL; Eosinophils # (auto) 0.1 uL; Hemoglobin 8.6 g/dL (12.2-16.2); Monocytes # (auto) 0.4 uL; Nucleated Red Blood Cells % 0.1 %; Red Cell Distribution Width 16.2 % (11.8-14.3)
[2019-08-29 07:35] LABS: Eosinophils % (auto) 3.4 % (0.0-7.0); Hematocrit 25.3 % (36.0-46.0); Lymphocytes # (auto) 0.4 uL; Lymphocytes % (auto) 14.1 % (10.0-50.0); Mean Corpuscular Hemoglobin 36.1 pg (28.0-32.0); Mean Corpuscular Hgb Conc. 34.1 g/dL (32.0-36.0); Mean Corpuscular Volume 105.8 fL (80.0-100.0); Monocytes % (auto) 13.5 % (0.0-12.0); Neutrophils # (auto) 1.8 uL; Platelet Count (auto) 60 10^3/uL (140-450); Red Blood Cells 2.39 10^6/uL (4.0-5.20); White Blood Cell 2.6 10^3/uL (4.4-10.8)
[2019-08-29 07:57] LABS: Potassium 4.1 mmol/L (3.5-5.1)
[2019-08-29 08:04] LABS: Albumin 2.1 g/dL (3.4-5.0); BUN/Creatinine Ratio 11.5; Bilirubin, Total 0.7 mg/dL (0.2-1.0); Calcium 7.8 mg/dL (8.5-10.1); Total Protein 5.8 g/dL (6.4-8.2)
[2019-08-29 09:00] VITALS: BP 134/63
[2019-08-29] MEDS: LEVOFLOXACIN 500MG 100 ML IV SCH (10:00)
[2019-08-29] MEDS: PANTOPRAZOLE 40 MG TAB PO SCH (10:01)
[2019-08-29] MEDS: BUMETANIDE 1mg/4ml VIAL (0.25mg/ml) IV SCH (10:01)
--- NOTE | 2019-08-29 10:10 | NUR ---
Hospitalist at bedside MD Kiki at bedside, aware of patient's status. New orders received for labs and cxr tomorrow. Patient instructed to use IS she verbalized understanding returned demonstration. MD states possible dc tomorrow. Will cont care
[2019-08-29] MEDS: VANCOMYCIN 1GM/250ML 250 ML IV SCH (11:41)
[2019-08-29 13:00] VITALS: BP 125/71
[2019-08-29 17:00] VITALS: BP 123/60
--- NOTE | 2019-08-29 19:00 | NUR ---
Patient care endorsed endorsed care to Claude rn. Patient constantly ambulating around nurses station tolerating well accompanied by . Patient care endorsed. No s/s of distress or sob.
--- NOTE | 2019-08-29 19:16 | NUR ---
Opening Shift Note Assumed care of patient, awake and alert. No S/S of distress/SOB or pain. Patient ambulating in the hallway. Instructed on POC and to call for assist PRN, will continue to monitor for changes Q1hr and PRN.
[2019-08-29 22:00] VITALS: BP 128/50
[2019-08-30] MEDS: VANCOMYCIN 1GM/250ML 250 ML IV SCH (03:10)
[2019-08-30 05:00] VITALS: BP 123/70
[2019-08-30] MEDS: InsuLIN REG 1unit/0.01ml Soln (100units/ml) SC SCH ×4 (06:00→23:46)
[2019-08-30] MEDS: ACCU-CHEK COMFORT CURVE STRIP VI SCH ×4 (06:10→23:45)
[2019-08-30 07:18] LABS: Basophils # (auto) 0 uL; Eosinophils # (auto) 0.1 uL; Hemoglobin 7.8 g/dL (12.2-16.2); Lymphocytes # (auto) 0.3 uL; Lymphocytes % (auto) 15.2 % (10.0-50.0); Monocytes # (auto) 0.3 uL; Neutrophils # (auto) 1.1 uL
[2019-08-30 07:20] LABS: Basophils % (auto) 0.5 % (0.0-2.0); Eosinophils % (auto) 3.3 % (0.0-7.0); Hematocrit 23.1 % (36.0-46.0); Mean Corpuscular Hemoglobin 35.5 pg (28.0-32.0); Mean Corpuscular Hgb Conc. 33.8 g/dL (32.0-36.0); Monocytes % (auto) 17.9 % (0.0-12.0); Neutrophils % (auto) 63.1 % (37.0-80.0); Nucleated Red Blood Cells % 0.3 %; Platelet Count (auto) 48 10^3/uL (140-450); Red Cell Distribution Width 15.8 % (11.8-14.3)
--- NOTE | 2019-08-30 07:30 | NUR ---
Opening Shift Note Assumed care of patient, awake and alert. No S/S of distress/SOB or pain. Instructed on POC and to call for assist PRN, will continue to monitor for changes Q1hr and PRN. Fall precautions in place per safety protocol.
[2019-08-30 07:40] LABS: Calcium 7.8 mg/dL (8.5-10.1); Potassium 3.8 mmol/L (3.5-5.1)
--- NOTE | 2019-08-30 07:45 | NUR ---
Critical lab Ann from lab called for critical lab value of WBC 1.7. Called MD Swanson and left message for critical lab value. Awaiting call back at this time.
[2019-08-30 07:46] LABS: White Blood Cell 1.7 10^3/uL (4.4-10.8)
[2019-08-30 07:47] LABS: Albumin 1.9 g/dL (3.4-5.0); BUN/Creatinine Ratio 10.5; Bilirubin, Total 0.7 mg/dL (0.2-1.0); Total Protein 5.4 g/dL (6.4-8.2)
[2019-08-30 09:00] VITALS: BP 121/71
--- NOTE | 2019-08-30 10:14 | NUR ---
Hospitalist at bedside Kiki at bedside, aware of patient status including critical lab value. New orders received to page supervisor framing mill for possible catheter placement for increase pleural effusion. Paged MD Polk per MD Swanson request and awaiting call back at this time. Will cont to care for patient.
[2019-08-30] MEDS: LEVOFLOXACIN 500MG 100 ML IV SCH (10:43)
[2019-08-30] MEDS: BUMETANIDE 1mg/4ml VIAL (0.25mg/ml) IV SCH (10:43)
[2019-08-30] MEDS: PANTOPRAZOLE 40 MG TAB PO SCH (10:44)
[2019-08-30 13:00] VITALS: BP 122/77
[2019-08-30 14:16] LABS: Albumin 2.3 g/dL (3.4-5.0); BUN/Creatinine Ratio 9.5; Calcium 8.1 mg/dL (8.5-10.1); Potassium 3.8 mmol/L (3.5-5.1)
[2019-08-30 14:19] LABS: Bilirubin, Total 0.9 mg/dL (0.2-1.0); Total Protein 6.2 g/dL (6.4-8.2)
--- NOTE | 2019-08-30 16:23 | NUR ---
Certified Real Estate Appraiser at bedside Jam at bedside, aware of patient status. . states he will do another thoracentesis tomorrow. New orders received, will carry out new orders and will cont to care for patient.
[2019-08-30 17:00] VITALS: BP 119/73
--- NOTE | 2019-08-30 19:30 | NUR ---
Care endorsed Care endorsed to night RN.
--- NOTE | 2019-08-30 19:30 | NUR ---
Opening Shift Note Assumed care of patient, awake and alert. No S/S of distress/SOB or pain. Family at bedside. Instructed on POC and to gwen lfor assist PRN, will continue to monitor for changes Q1hr and PRN.
[2019-08-30 22:00] VITALS: BP 114/58
[2019-08-30] MEDS: ACETAMINOPHEN 325 MG TAB PO PRN (22:34)
[2019-08-31 05:00] VITALS: BP 119/55
[2019-08-31] MEDS: InsuLIN REG 1unit/0.01ml Soln (100units/ml) SC SCH ×3 (05:51→18:07)
[2019-08-31] MEDS: ACCU-CHEK COMFORT CURVE STRIP VI SCH ×3 (05:51→18:07)
[2019-08-31 06:21] LABS: Basophils # (auto) 0 uL; Eosinophils # (auto) 0.1 uL; Hemoglobin 8.6 g/dL (12.2-16.2); Lymphocytes # (auto) 0.4 uL; Monocytes # (auto) 0.3 uL; Nucleated Red Blood Cells % 0.1 %
[2019-08-31 06:23] LABS: Basophils % (auto) 0.3 % (0.0-2.0); Eosinophils % (auto) 2.8 % (0.0-7.0); Hematocrit 24.7 % (36.0-46.0); Lymphocytes % (auto) 18.4 % (10.0-50.0); Mean Corpuscular Hemoglobin 35.8 pg (28.0-32.0); Mean Corpuscular Hgb Conc. 34.6 g/dL (32.0-36.0); Mean Corpuscular Volume 103.2 fL (80.0-100.0); Monocytes % (auto) 14.5 % (0.0-12.0); Neutrophils # (auto) 1.3 uL; Platelet Count (auto) 62 10^3/uL (140-450); Red Blood Cells 2.39 10^6/uL (4.0-5.20); Red Cell Distribution Width 16.1 % (11.8-14.3); White Blood Cell 2.1 10^3/uL (4.4-10.8)
[2019-08-31 06:34] LABS: BUN/Creatinine Ratio 10.2; Calcium 8.2 mg/dL (8.5-10.1); Potassium 3.8 mmol/L (3.5-5.1)
--- NOTE | 2019-08-31 07:30 | NUR ---
Opening Shift Note Assumed care of patient, awake and alert Oriented x4. No S/S of distress/SOB or pain noted. Bed is in lowest locked position with bed rails up x2 and call light is within reach of the patient. Instructed on POC and to call for assist PRN.
--- NOTE | 2019-08-31 08:41 | NUR ---
Hospitalist at bedside MD Kiki at bedside, aware of patient status. No new orders received at this time, Possible DC tomorrow 09/01/19. Will cont to monitor patient.
[2019-08-31 09:00] VITALS: BP 134/91
[2019-08-31] MEDS: LEVOFLOXACIN 500MG 100 ML IV SCH (10:07)
[2019-08-31] MEDS: SPIRONOLACTONE 25 MG TAB PO SCH (10:08)
[2019-08-31] MEDS: PANTOPRAZOLE 40 MG TAB PO SCH (10:08)
[2019-08-31] MEDS: BUMETANIDE 1 MG TAB PO SCH (10:08)
--- NOTE | 2019-08-31 10:45 | NUR ---
Rustic Terrazzo Setter at bedside MD Polk at bedside, aware of patient status. Orders for chest ultrasounds received for followup on pleural effusion. Will carry out new orders and will cont to monitor patient.
--- NOTE | 2019-08-31 11:19 | NUR ---
Nutrition Follow-up Notes Wt.: 93.9 kg Pt was sleeping with no family by bedside. per records pt with pleural effusion no distress noted currently on CCHO 60 gm/meal diet with adequate Po fo 75% x4 per RN doc Est. Needs ABW 71 [id number] kcal (20-23kcal/kgBW), 71-85 gms pro (1.0-1.2 gms/kgBW r/t severe hypoalb). Will continue to monitor pertinent labs and reassess nutrient need prn Labs: GLU 111 H, CREAT 1.47 H, CA 8.2 L, ALB 2.3 L. Skin: Shailesh scale 22 low risk, skin intact per RN doc GI: Pt had 2 BM on 08/30 per integrated logistics support manager. PES: Altered nutrition related lab values r/t current/chronic medical condition aeb hyperglycemia, severe hypoalb Decreased nutrient needs rt adiposity aeb pt`s high BMI of 35.2 kgm2 Will continue to monitor PO intake, pertinent labs, skin status and weight trends. F/u in 3-5 days. Additional Rec.: 1.) refer to CDE on DC. 2) consider prostat 1 packet bid. 3) continue current plan of care
[2019-08-31 13:00] VITALS: BP 113/57
--- NOTE | 2019-08-31 14:13 | NUR ---
Masonry Instructor at bedside MD Polk at bedside, aware of patient status. MD explained to patient no thoracentesis needed at this time. Patient verbalized understanding. Patient is cleared by bottom cementer for dc. Will cont to monitor patient and followup with hospitalist regarding dc.
--- NOTE | 2019-08-31 15:34 | NUR ---
Called Hospitalist Called hospitalist MD Swanson per MD Polk. Left a message, awaiting call back at this time.
[2019-08-31 16:52] VITALS: BP 120/58
--- NOTE | 2019-08-31 19:15 | NUR ---
Care endorsed Care endorsed to night KEMAR Horan. Patient ambulating hallways, no signs of distress/sob or pain noted at this time.
--- NOTE | 2019-08-31 19:20 | NUR ---
Opening Shift Note Report received from day shift RN. Assumed care of patient. Patient sitting in bed awake and A&O x4. No S/S of distress/SOB noted and denies pain at this time. Bed locked in the lowest position with bed rails up x2 and call light is left within reach of the patient. Instructed on POC and to call for assistance PRN. Will continue to monitor for changes q 1hr and PRN.
[2019-08-31 22:00] VITALS: BP 122/68
[2019-09-01] MEDS: ACCU-CHEK COMFORT CURVE STRIP VI SCH ×3 (00:14→12:22)
[2019-09-01 05:00] VITALS: BP 108/45
[2019-09-01] MEDS: InsuLIN REG 1unit/0.01ml Soln (100units/ml) SC SCH ×3 (06:00→12:33)
[2019-09-01 09:00] VITALS: BP 103/62
[2019-09-01] MEDS: PANTOPRAZOLE 40 MG TAB PO SCH (09:27)
[2019-09-01] MEDS: SPIRONOLACTONE 25 MG TAB PO SCH (09:28)
[2019-09-01] MEDS: LEVOFLOXACIN 500MG 100 ML IV SCH (09:30)
[2019-09-01] MEDS: BUMETANIDE 1 MG TAB PO SCH (11:34)
[2019-09-01 12:10] VITALS: BP 113/58
[2019-09-01 13:00] VITALS: BP 107/54
--- NOTE | 2019-09-01 13:30 | NUR ---
[facility]SA SWAB SENT
--- NOTE | 2019-09-01 14:29 | NUR ---
Discharge instructions given as ordered. Encourage to follow up with PMD as instructed. All questions and concerns addressed. Patient verbalized understanding. Medication reconciliation form completed and copy given to patient. No home medications held in Pharmacy and none returned to patient, and no needed vaccines given. All vascular access removed with catheter intact, pressure dressing applied. Telemetry unit returned to ICU. Patient taken to vehicle via wheelchair with all personal belongings, accompanied by staff and family member. No distress noted at time of departure.
== END 2019-09-01 14:29 | disposition home or self-care (01) | DRG 720 ==
LOC: EDBD 22:23 → ER 22:26 → TELE 22:27 → ICU WEST 08-24 19:45 → TELE-WESTW 08-25 16:00
PROVIDERS: ADMIT Nurse Practitioner; ATTEND Internal Medicine
PROC: 0W9B3ZZ Drainage of Left Pleural Cavity, Percutaneous Approach (ICD-10-PCS; principal; 2019-08-27)
DX: A41.9 Sepsis, unspecified organism (principal); N17.0 Acute kidney failure with tubular necrosis; J69.0 Pneumonitis due to inhalation of food and vomit; D61.818 Other pancytopenia; J91.8 Pleural effusion in other conditions classified elsewhere; E44.0 Moderate protein-calorie malnutrition; E11.22 Type 2 diabetes mellitus with diabetic chronic kidney disease; N18.3 Chronic kidney disease, stage 3 (moderate); K76.6 Portal hypertension; R18.8 Other ascites; D63.8 Anemia in other chronic diseases classified elsewhere; K74.60 Unspecified cirrhosis of liver; E87.5 Hyperkalemia; B96.89 Other specified bacterial agents as the cause of diseases classified elsewhere; D17.71 Benign lipomatous neoplasm of kidney; E66.9 Obesity, unspecified; E86.0 Dehydration; F41.9 Anxiety disorder, unspecified; I85.10 Secondary esophageal varices without bleeding; B96.1 Klebsiella pneumoniae [K. pneumoniae] as the cause of diseases classified elsewhere; I12.9 Hypertensive chronic kidney disease with stage 1 through stage 4 chronic kidney disease, or unspecified chronic kidney disease; K57.10 Diverticulosis of small intestine without perforation or abscess without bleeding; Z79.899 Other long term (current) drug therapy; Z83.3 Family history of diabetes mellitus; Z23 Encounter for immunization; Z68.36 Body mass index [BMI] 36.0-36.9, adult
CPT/HCPCS: 10022; 32555; 36415; 36556; 36600; 51702; 71045; 71046; 71250; 74176; 76604; 76700; 76942; 80048; 80053; 80202; 81001; 82550; 82805; 82962; 83605; 83880; 83986; 84484; 85007; 85025; 85027; 85610; 85730; 87040; 87070; 87077; 87081; 87086; 87186; 87205; 89051; 93005; 96360; 99291; G0378; J1815; J1956; J2543; J7060; Q0162

== ENCOUNTER 2019-11-23 11:11 | Inpatient (IN) | payer MEDICAID ==
[~2019-11-23] VITALS: Ht 162.6 cm; Wt 85.7 kg
[~2019-11-23 11:11] MED LIST changes: +ATOR20TA50 PO; +BUME2TAB5 PO; +CALCTAB25 PO; +CHOL20007 PO; +CYAN500L3 PO; +FERR-20 PO; +GLIP5TAB12 PO; +GLUC-244; +LISI-646 PO; +METF-372 PO; +OMEG100078 PO; +OXYB10TA14 PO; +PROP20TA73 PO; +PYRI100T51 PO; +SITA100T7 PO; +URSO300C9 PO; +VITA400T4 PO; +[UNRECOGNIZED DRUG - CODE] PO
[2019-11-23] MEDS ORDERED: SODIUM CHLORIDE 0.9% 1,000 ML IVB ONE (15:41)
[2019-11-23 17:15] LABS: Albumin 1.9 g/dL (3.4-5.0); BUN/Creatinine Ratio 15.3; Calcium 8.6 mg/dL (8.5-10.1); Magnesium 1.8 mg/dL (1.6-2.6); Potassium 4.9 mmol/L (3.5-5.1)
[2019-11-23 17:17] LABS: Total Protein 6.7 g/dL (6.4-8.2)
[2019-11-23 17:31] LABS: Urine Bacteria MOD /hpf (None Seen); Urine Blood Negative /uL (Negative); Urine Hyaline Cast FEW /lpf (0 - 2); Urine Mucus FEW (None Seen); Urine Specific Gravity 1.025 (1.001-1.035); Urine WBC 10 /hpf (0 - 5)
[2019-11-23 17:32] LABS: Basophils # (auto) 0 uL; Basophils % (auto) 0.5 % (0.0-2.0); Eosinophils # (auto) 0 uL; Eosinophils % (auto) 0.2 % (0.0-7.0); Hematocrit 25.8 % (36.0-46.0); Hemoglobin 8.8 g/dL (12.2-16.2); Lymphocytes # (auto) 0.2 uL; Lymphocytes % (auto) 5.1 % (10.0-50.0); Mean Corpuscular Hemoglobin 34.7 pg (28.0-32.0); Monocytes # (auto) 0.2 uL; Monocytes % (auto) 7.4 % (0.0-12.0); Neutrophils # (auto) 2.9 uL; Neutrophils % (auto) 86.8 % (37.0-80.0); Nucleated Red Blood Cells % 0.2 %; Platelet Count (auto) 100 10^3/uL (140-450); Red Blood Cells 2.53 10^6/uL (4.0-5.20); Red Cell Distribution Width 19.3 % (11.8-14.3); White Blood Cell 3.3 10^3/uL (4.4-10.8)
[2019-11-23] MEDS ORDERED: NITROGLYCERIN 0.4 MG SL TAB SL PRN ×2 (20:30→21:00)
[2019-11-23] MEDS ORDERED: ONDANSETRON HCL 4 MG/2 ML VIAL IV PRN ×2 (20:30→21:00)
[2019-11-23] MEDS ORDERED: MORPHINE SULF INJ 2 MG/ML SYRINGE 1ML IV PRN ×2 (20:30→21:00)
[2019-11-23 23:31] VITALS: BP 125/63
[2019-11-24] VITALS (8 sets, daily range): BP systolic 120–132; BP diastolic 58–66
[2019-11-24] MEDS ORDERED: LACTULOSE 20Gm/30ML SOLN PO SCH
[2019-11-24] MEDS: LACTULOSE 20Gm/30ML SOLN PO SCH ×4 (05:49→17:42)
[2019-11-24 06:25] LABS: Hematocrit 23.4 % (36.0-46.0); Mean Corpuscular Hemoglobin 34.7 pg (28.0-32.0); Mean Corpuscular Hgb Conc. 34.1 g/dL (32.0-36.0); Platelet Count (auto) 71 10^3/uL (140-450); Red Blood Cells 2.29 10^6/uL (4.0-5.20); Red Cell Distribution Width 19.7 % (11.8-14.3)
[2019-11-24 06:36] LABS: Basophils % (manual) 0 (0.0-2.0); Blast Cells 0; Metamyelocytes % 0; Promyelocytes % 0; Reactive Lymphocytes 0; White Blood Cell 1.2 10^3/uL (4.4-10.8)
[2019-11-24 06:38] LABS: Potassium 4.3 mmol/L (3.5-5.1)
[2019-11-24 06:42] LABS: Albumin 1.8 g/dL (3.4-5.0); BUN/Creatinine Ratio 18.3; Calcium 8.3 mg/dL (8.5-10.1)
[2019-11-24 06:44] LABS: Bilirubin, Total 0.9 mg/dL (0.2-1.0); Total Protein 6.3 g/dL (6.4-8.2)
[2019-11-24 08:28] LABS: Band Neutrophils % (manual) 2; Eosinophils % (manual) 4 (0-7); Lymphocytes % (manual) 8 (10.0-50.0); Monocytes % (manual) 15 (0-12); Myelocytes % 2
[2019-11-24] MEDS ORDERED: DEXTROSE (50%) 50ML SYRG IV PRN (17:15)
[2019-11-24] MEDS ORDERED: ACCU-CHEK COMFORT CURVE STRIP VI SCH ×2 (17:45→22:00)
[2019-11-24] MEDS ORDERED: InsuLIN REG 1unit/0.01ml Soln (100units/ml) SC SCH ×2 (17:45→22:00)
[2019-11-25] MEDS ORDERED: InsuLIN REG 1unit/0.01ml Soln (100units/ml) SC SCH (07:00)
== END 2019-11-24 21:25 | disposition home or self-care (01) ==
LOC: EDBD 11:11 → ER 11:11 → TELE 11:12 → TELE-WESTW 22:44
PROVIDERS: ADMIT Internal Medicine; ATTEND Internal Medicine
DX: K74.60 Unspecified cirrhosis of liver (principal); G93.41 Metabolic encephalopathy; D61.818 Other pancytopenia; K72.90 Hepatic failure, unspecified without coma; N18.3 Chronic kidney disease, stage 3 (moderate); E11.21 Type 2 diabetes mellitus with diabetic nephropathy; E66.9 Obesity, unspecified; E11.22 Type 2 diabetes mellitus with diabetic chronic kidney disease; E78.5 Hyperlipidemia, unspecified; I12.9 Hypertensive chronic kidney disease with stage 1 through stage 4 chronic kidney disease, or unspecified chronic kidney disease; N39.0 Urinary tract infection, site not specified; Z79.84 Long term (current) use of oral hypoglycemic drugs; Z79.899 Other long term (current) drug therapy; Z82.3 Family history of stroke; Z83.3 Family history of diabetes mellitus; Z68.32 Body mass index [BMI] 32.0-32.9, adult
CPT/HCPCS: 36415; 71045; 80053; 81001; 82140; 82962; 83735; 85007; 85025; 85027; 87081; 93005; 96360; G0378; J1815

== ENCOUNTER 2019-12-09 18:28 | Inpatient (IN) | payer MEDICAID ==
[~2019-12-09] VITALS: Ht 170.2 cm; Wt 86.3 kg
[2019-12-09 19:42] LABS: Basophils # (auto) 0 10 ^3/uL (0-0.2); Basophils % (auto) 0.4 % (0.0-2.0); Eosinophils # (auto) 0.1 10 ^3/uL (0-0.8); Hemoglobin 11.3 g/dL (12.2-16.2); Lymphocytes # (auto) 0.6 10 ^3/uL (0.4-5.4); Monocytes # (auto) 0.8 10 ^3/uL (0-1.3)
[2019-12-09 19:44] LABS: Eosinophils % (auto) 1.3 % (0.0-7.0); Hematocrit 34.3 % (36.0-46.0); Lymphocytes % (auto) 10.1 % (10.0-50.0); Mean Corpuscular Hemoglobin 34.2 pg (28.0-32.0); Mean Corpuscular Hgb Conc. 32.9 g/dL (32.0-36.0); Monocytes % (auto) 13.3 % (0.0-12.0); Neutrophils # (auto) 4.2 10 ^3/uL (1.6-8.6); Neutrophils % (auto) 74.9 % (37.0-80.0); Nucleated Red Blood Cells % 0.8 %; Platelet Count (auto) 111 10^3/uL (140-450); Red Blood Cells 3.29 10^6/uL (4.0-5.20); White Blood Cell 5.6 10^3/uL (4.4-10.8)
[2019-12-09 19:45] LABS: Red Cell Distribution Width 20.9 % (11.8-14.3)
[2019-12-09 19:59] LABS: INR 1.41 (0.9-1.15); Partial Thromboplastin Time 32.2 sec (23.64-32.05)
[2019-12-09 20:01] LABS: Alanine Aminotransferase 35 U/L (13-56); Albumin 1.9 g/dL (3.4-5.0); Anion Gap 1 (5-15); Aspartate Aminotransferase 42 U/L (15-37); BUN/Creatinine Ratio 14.7; Blood Urea Nitrogen 23 mg/dL (7-18); Calcium 8.6 mg/dL (8.5-10.1); Carbon Dioxide 28 mmol/L (21-32); Chloride 107 mmol/L (98-107); GFR African American 43 mL/min; GFR Non-African American 36 mL/min; Glucose 206 mg/dL (74-106); Potassium 5.4 mmol/L (3.5-5.1); Sodium 136 mmol/L (136-145)
[2019-12-09 20:06] LABS: Alkaline Phosphatase 153 U/L (45-117); Bilirubin, Total 1.1 mg/dL (0.2-1.0); Total Protein 8.1 g/dL (6.4-8.2)
[2019-12-09] MEDS ORDERED: FUROSEMIDE 20 MG/2 ML VIAL IV ONE (21:30)
[2019-12-09] MEDS ORDERED: ACETAMINOPHEN 500 MG TAB PO PRN (22:00)
[2019-12-09] MEDS ORDERED: MORPHINE SULF INJ 2 MG/ML SYRINGE 1ML IV PRN ×2 (22:00)
[2019-12-09] MEDS ORDERED: ONDANSETRON HCL 4 MG/2 ML VIAL IV PRN (22:00)
[2019-12-09] MEDS ORDERED: hydrALAZINE HCL 20 MG/ML VL IV PRN (22:00)
[2019-12-09] MEDS ORDERED: NITROGLYCERIN 0.4 MG SL TAB SL PRN (22:00)
[2019-12-09] MEDS: IPRATROPIUM BROM 0.5 MG/2.5ML INH SOL NEB SCH (23:10)
[2019-12-09] MEDS: ALBUTEROL SULF 2.5 MG/0.5ML(0.5%) NEB SOLN NEB SCH (23:10)
--- NOTE | 2019-12-09 23:25 | NUR ---
Telemetry admit from ER LUCY ARAGON admitted to Telemetry unit after SBAR received. Patient oriented to Pippa jett RN, unit, room, bed, and unit policies regarding patient care and visiting hours. Patient now on continuous telemetry monitoring, tele box # 40 and telemetry reading on arrival to unit is SR 98. Patient placed on bedside oxygen 4L, weighed by bedscale and encouraged to call if they need something. All questions and concerns addressed, patient verbalized understanding. Note: at bedside.
[2019-12-09 23:50] VITALS: BP 144/67
[2019-12-10] VITALS (8 sets, daily range): BP systolic 103–144; BP diastolic 52–67
[2019-12-10] MEDS ORDERED: LACT10SO3 PO (00:28)
[2019-12-10] MEDS: IPRATROPIUM BROM 0.5 MG/2.5ML INH SOL NEB SCH ×6 (02:18→22:25)
[2019-12-10] MEDS: ALBUTEROL SULF 2.5 MG/0.5ML(0.5%) NEB SOLN NEB SCH ×6 (02:18→22:25)
--- NOTE | 2019-12-10 05:02 | NUR ---
checked on pt. pt breathing seems a little labored. total diminished lung sounds on the right side. O2 is 90% on 4L nasal cannula. talked with RT. left message with dr. angelo. awaiting call back.
[2019-12-10 05:29] LABS: Basophils # (auto) 0 10 ^3/uL (0-0.2); Eosinophils # (auto) 0 10 ^3/uL (0-0.8); Eosinophils % (auto) 0.2 % (0.0-7.0); Hemoglobin 10.1 g/dL (12.2-16.2); Lymphocytes # (auto) 0.5 10 ^3/uL (0.4-5.4); Monocytes % (auto) 7.2 % (0.0-12.0); White Blood Cell 13.3 10^3/uL (4.4-10.8)
[2019-12-10 05:32] LABS: Basophils % (auto) 0.1 % (0.0-2.0); Lymphocytes % (auto) 4.1 % (10.0-50.0); Mean Corpuscular Hemoglobin 34.2 pg (28.0-32.0); Mean Corpuscular Hgb Conc. 32.7 g/dL (32.0-36.0); Mean Corpuscular Volume 104.6 fL (80.0-100.0); Neutrophils # (auto) 11.7 10 ^3/uL (1.6-8.6); Neutrophils % (auto) 88.4 % (37.0-80.0); Nucleated Red Blood Cells % 0.4 %; Platelet Count (auto) 102 10^3/uL (140-450); Red Blood Cells 2.96 10^6/uL (4.0-5.20)
[2019-12-10 05:42] LABS: Albumin 1.8 g/dL (3.4-5.0); Calcium 8.6 mg/dL (8.5-10.1); Potassium 5.5 mmol/L (3.5-5.1)
[2019-12-10 05:44] LABS: BUN/Creatinine Ratio 18.4; Red Cell Distribution Width 21.6 % (11.8-14.3)
[2019-12-10] MEDS ORDERED: FUROSEMIDE 40 MG/4 ML VIAL IV ONE (05:45)
--- NOTE | 2019-12-10 05:48 | NUR ---
NEW ORDERS FROM DR. ESTRADA. TALKED TO RT WHO WAS IN ROOM GIVING BREATHING TREATMENT. CHANGE, RN ORI LOCKWOOD
[2019-12-10] MEDS ORDERED: FUROSEMIDE 40 MG/4 ML VIAL ONE (05:54)
[2019-12-10 05:58] LABS: Bilirubin, Total 1.1 mg/dL (0.2-1.0); Total Protein 7.5 g/dL (6.4-8.2)
[2019-12-10] MEDS: PROPRANOLOL HCL 20 MG TAB PO SCH ×3 (06:00→21:57)
[2019-12-10] MEDS: LACTULOSE 20Gm/30ML SOLN PO SCH ×3 (06:04→22:00)
--- NOTE | 2019-12-10 06:10 | NUR ---
PT PLACED ON BIPAP 12/5 BUR 16, 40% FIO2 S/P ABG RESULTS. PT WEARING MEDIUM FACE MASK WITH NO BREAKDOWN ON FACIAL SKIN. PT TOLERATING WELL. SPONTANEOUS VT RANGES 300ml-500ml ON CURRENT SETTINGS. PT CONNECTED TO CONTINUOUS PULSE OX MONITOR AT BEDSIDE. BIPAP PLUGGED TO RED WALL OUTLET. BVM AT BEDSIDE. BIPAP ALARMS SET AND AUDIBLE AT CENTRAL RN STATION.
[2019-12-10] MEDS: FUROSEMIDE 40 MG/4 ML VIAL IV SCH (08:55)
[2019-12-10] MEDS: glipiZIDE 5 MG TAB PO SCH ×2 (08:56→22:02)
[2019-12-10] MEDS: BUMETANIDE 1 MG TAB PO SCH (08:57)
[2019-12-10] MEDS ORDERED: SPIRONOLACTONE 25 MG TAB PO SCH (10:00)
[2019-12-10] MEDS ORDERED: LISINOPRIL 20 MG TAB PO SCH (10:00)
[2019-12-10] MEDS ORDERED: metFORMIN HYDROCHLORIDE 500 MG TAB PO SCH (10:00)
--- NOTE | 2019-12-10 10:50 | NUR ---
CHANGED BIPAP SETTINGS TO 16/5, BUR 16, 40% FIO2 POST ABG RESULTS ON BIPAP.
--- NOTE | 2019-12-10 10:56 | NUR ---
DR FRANKS UPDATED ON RESENT ABG RESULTS.
--- NOTE | 2019-12-10 12:00 | NUR ---
Received pt's report from Chen/RN, assessed pt, pt turned and reposition, pt had a BM, pt cleaned and dry, pt's daughter at bed side, call light with in reach, BIPAP on, RT at bed side, will continue to monitor pt.
--- NOTE | 2019-12-10 12:35 | NUR ---
Dr. Cope/patient's librarian at bed side to see pt, doctor discussed the plan of care with pt's daughter, orders received, will follow orders.
--- NOTE | 2019-12-10 13:00 | NUR ---
Report given to Didian/RN.
--- NOTE | 2019-12-10 13:17 | NUR ---
RECEIVED REPORT AND ASSUMED CARE OF PT. PT OFF UNIT.
--- NOTE | 2019-12-10 13:20 | NUR ---
PT IN ULTRASOUND BY DR COLLAZO. VSS 122/[id number]%. 850 ML OF BURGUNDY FLUID REMOVED AND SENT TO LAB. PT TOLERATED WELL. POST CHEST CT DONE
--- NOTE | 2019-12-10 14:00 | NUR ---
PT BACK FROM THORACENTESIS, PT ON 3LNC, SPO2 95%. NO RESPIRATORY DISTRESS. BIPAP AT BEDSIDE IF NEEDED.
--- NOTE | 2019-12-10 17:10 | NUR ---
DR FRANKS MADE AWARE AT THE NURSING STATION THE RESULT OF V/Q SCAN.
--- NOTE | 2019-12-10 19:20 | NUR ---
Opening note Pt resting in semi fowlers position with HOB at 30 degrees. respirations are even and non labored on 3liters NC. pt denies any pain or discomfort at this time. POC discussed with pt. is at pts bedside. arana in place, without kinks, patent and draining to gravity. bed is in low locked position with call light within reach.
--- NOTE | 2019-12-10 19:22 | NUR ---
PT RESTING IN BED. NO S/S ACUTE DISTRESS NOTED. ENDORSED CARE TO NIGHT NURSE.
[2019-12-10] MEDS: cefTRIAXone 1GM/50ML D5W 50 ML IV SCH (20:57)
[2019-12-10] MEDS: ATORVASTATIN 20 MG TAB PO SCH (21:58)
[2019-12-11] VITALS (7 sets, daily range): BP systolic 92–108; BP diastolic 42–63
--- NOTE | 2019-12-11 01:30 | NUR ---
pt resting in right lateral position with eyes closed. no s/s of pain or discomfort at this time. nasal cannula in place 3Lnc. will continue to monitor.
[2019-12-11] MEDS: ALBUTEROL SULF 2.5 MG/0.5ML(0.5%) NEB SOLN NEB SCH ×6 (02:20→22:14)
[2019-12-11] MEDS: IPRATROPIUM BROM 0.5 MG/2.5ML INH SOL NEB SCH ×6 (02:20→22:14)
--- NOTE | 2019-12-11 04:45 | NUR ---
Rounds pt resting in semi fowlers position with eyes closed. no s/s of pain or discomfort at this time. respirations are even and nonlabored at this time, on 3Lnc. bed is in low locked position, call light is within reach. Will continue to monitor.
[2019-12-11 05:55] LABS: Basophils # (auto) 0 10 ^3/uL (0-0.2); Eosinophils # (auto) 0.1 10 ^3/uL (0-0.8); Mean Corpuscular Hemoglobin 34.6 pg (28.0-32.0); Monocytes % (auto) 12.7 % (0.0-12.0); Neutrophils # (auto) 5.2 10 ^3/uL (1.6-8.6); Nucleated Red Blood Cells % 0.1 %; White Blood Cell 6.7 10^3/uL (4.4-10.8)
[2019-12-11 05:58] LABS: Basophils % (auto) 0.3 % (0.0-2.0); Hematocrit 27.5 % (36.0-46.0); Hemoglobin 9.1 g/dL (12.2-16.2); Lymphocytes # (auto) 0.5 10 ^3/uL (0.4-5.4); Lymphocytes % (auto) 8.1 % (10.0-50.0); Mean Corpuscular Volume 104.8 fL (80.0-100.0); Monocytes # (auto) 0.8 10 ^3/uL (0-1.3); Neutrophils % (auto) 77.9 % (37.0-80.0); Platelet Count (auto) 64 10^3/uL (140-450); Red Blood Cells 2.62 10^6/uL (4.0-5.20)
[2019-12-11] MEDS: LACTULOSE 20Gm/30ML SOLN PO SCH ×3 (06:07→21:40)
[2019-12-11] MEDS: PROPRANOLOL HCL 20 MG TAB PO SCH ×3 (06:08→21:41)
[2019-12-11 06:16] LABS: Albumin 1.5 g/dL (3.4-5.0); Calcium 8.4 mg/dL (8.5-10.1); Potassium 4.3 mmol/L (3.5-5.1)
[2019-12-11 06:29] LABS: Bilirubin, Total 0.6 mg/dL (0.2-1.0); Total Protein 6.4 g/dL (6.4-8.2)
--- NOTE | 2019-12-11 06:30 | NUR ---
Pt currently watching tv, in semi fowlers position with HOB at 30 degrees. pt denies any pain or discomfort. respirations are even and nonlabored on 3Lnc. call light is within reach.
[2019-12-11 06:59] LABS: Red Cell Distribution Width 21.5 % (11.8-14.3)
--- NOTE | 2019-12-11 07:30 | NUR ---
Opening Note Assumed patient care from GEOVANNA RN.
[2019-12-11] MEDS: cefTRIAXone 1GM/50ML D5W 50 ML IV SCH ×2 (09:27→21:40)
[2019-12-11] MEDS: BUMETANIDE 1 MG TAB PO SCH (09:32)
[2019-12-11] MEDS: glipiZIDE 5 MG TAB PO SCH ×2 (09:34→21:41)
[2019-12-11] MEDS: FUROSEMIDE 40 MG/4 ML VIAL IV SCH (09:35)
[2019-12-11] MEDS: AZITHROMYCIN 500MG/ 250ML 250 ML IV SCH (11:13)
--- NOTE | 2019-12-11 16:58 | NUR ---
Respiratory note: ENTERED PT ROOM TO ASSES POX ALARMING LOW SPO2. PT WAS TAKEN OFF OXYGEN BY DR ESTRADA. WITH 3 MINS PT DESATURATED TO 79% ON RA. I PLACED PT BACK ON 3 L NC. SPO2 NOW 92%. REPORTED FINDINGS TO DR ESTRADA.
--- NOTE | 2019-12-11 18:00 | NUR ---
Wound Pictures Right buttocks skin tear and abdominal redness. Patient cleaned with mild soap and water, barrier cream applied. Photos taken. Patient shows no signs of distress, respirations even and unlabored, will continue to monitor.
--- NOTE | 2019-12-11 19:19 | NUR ---
Closing Report given to GEOVANNA REINOSO.
--- NOTE | 2019-12-11 19:35 | NUR ---
Opening Shift Note Assumed care of patient. Pt is awake, alert and orientated x 4. No S/S of distress/SOB or pain. Pt is calm and speaking appropriately. Bed is in lowest position with side rails up x 2. Bed brakes are locked and call light is with in reach. HOB is 30 degrees. Magdaleno catheter is patent with no kinks, loops, and is below bladder. Instructed on POC and to call for assist PRN, will continue to monitor for changes Q1hr and PRN.
[2019-12-11] MEDS: ATORVASTATIN 20 MG TAB PO SCH (21:41)
[2019-12-12] VITALS (7 sets, daily range): BP systolic 90–111; BP diastolic 45–63
[2019-12-12] MEDS: IPRATROPIUM BROM 0.5 MG/2.5ML INH SOL NEB SCH ×6 (02:17→22:02)
[2019-12-12] MEDS: ALBUTEROL SULF 2.5 MG/0.5ML(0.5%) NEB SOLN NEB SCH ×6 (02:17→22:02)
[2019-12-12] MEDS: PROPRANOLOL HCL 20 MG TAB PO SCH ×3 (06:00→21:54)
[2019-12-12] MEDS: LACTULOSE 20Gm/30ML SOLN PO SCH ×3 (06:26→21:54)
--- NOTE | 2019-12-12 07:30 | NUR ---
Opening Note Assume patient care from NOC RN.
--- NOTE | 2019-12-12 08:36 | NUR ---
Called Radiology Called radiology for approximate time for thoracentesis and instructions on pre procedure care.
--- NOTE | 2019-12-12 08:55 | NUR ---
Respiratory note: PT PLACED ON OXYMIZER 4L 41% FIO2 DUE TO DESATURATIONS ON 8L NC. SPO2 94%, HR 69, RR 20, BS COARSE/DIMINISHED BILATERALLY. WILL CONTINUE TO MONITOR PT. PT STATES THAT SHE FEELS BETTER WITH THE OXYMIZER, RATHER THAN THE NC. RN MADE AWARE.
[2019-12-12] MEDS: cefTRIAXone 1GM/50ML D5W 50 ML IV SCH ×2 (09:23→21:53)
[2019-12-12] MEDS: BUMETANIDE 1 MG TAB PO SCH (09:24)
[2019-12-12] MEDS: glipiZIDE 5 MG TAB PO SCH ×2 (09:26→22:09)
[2019-12-12 09:57] LABS: Basophils # (auto) 0 10 ^3/uL (0-0.2); Eosinophils # (auto) 0.1 10 ^3/uL (0-0.8); Lymphocytes # (auto) 0.5 10 ^3/uL (0.4-5.4); Platelet Count (auto) 82 10^3/uL (140-450)
[2019-12-12] MEDS: FUROSEMIDE 100 MG/10ML VIAL IV SCH (10:00)
[2019-12-12 10:01] LABS: Basophils % (auto) 0.4 % (0.0-2.0); Eosinophils % (auto) 2.6 % (0.0-7.0); Hematocrit 31.2 % (36.0-46.0); Hemoglobin 10.3 g/dL (12.2-16.2); Lymphocytes % (auto) 9.8 % (10.0-50.0); Mean Corpuscular Hemoglobin 34.8 pg (28.0-32.0); Mean Corpuscular Volume 105.5 fL (80.0-100.0); Monocytes # (auto) 0.7 10 ^3/uL (0-1.3); Monocytes % (auto) 14.6 % (0.0-12.0); Neutrophils # (auto) 3.6 10 ^3/uL (1.6-8.6); Neutrophils % (auto) 72.6 % (37.0-80.0); Nucleated Red Blood Cells % 0.1 %; Red Blood Cells 2.96 10^6/uL (4.0-5.20)
[2019-12-12 10:06] LABS: Red Cell Distribution Width 21.8 % (11.8-14.3)
[2019-12-12 10:13] LABS: Albumin 1.7 g/dL (3.4-5.0); Calcium 8.4 mg/dL (8.5-10.1); Potassium 4.3 mmol/L (3.5-5.1)
[2019-12-12 10:17] LABS: Bilirubin, Total 0.7 mg/dL (0.2-1.0)
[2019-12-12] MEDS ORDERED: FUROSEMIDE 100 MG/10ML VIAL IV ONE (11:15)
--- NOTE | 2019-12-12 11:20 | NUR ---
Patient Off Unit Patient off unit for procedure.
--- NOTE | 2019-12-12 11:40 | NUR ---
WOUND CARE NOTE: PATIENT ADMITTED TO [facility] WITH DIAGNOSIS OF HYPOXIA. CURRENT BETHANIE SCORE IS 20. PATIENT IS ABLE TO SELF TURN/REPOSITION SELF. PATIENT INGESTS LACTULOSE BID FOR HER CHRONIC LIVER DISEASE. SHE HAS MULTIPLE BOUTS WITH SOFT/LOOSE STOOL. PATIENT HAS MASD, WITH DARK RED/HYPERPIGMENTED SKIN TO INTRAGLUTEAL FOLD. SHE HAS MILD PARTIAL THICKNESS SKIN EROSION TO THE LEFT BUTTOCK, WITH 0.5 X 0.5 CM OPEN WOUNDS X 3. WOUND BED IS PINK, PERIWOUND IS DARK RED. PATIENT ALSO HAS AN INTACT INTERTRIGO NOTED TO ABDOMINAL SKIN FOLD. SKIN IS INTACT, DARK TO BRIGHT RED. NO OTHER SKIN INTEGRITY ISSUES. RECOMMEND: BID/PRN APPLICATIONS WITH ANTIFUNGAL CLEAR TO ABDOMINAL SKIN FOLD, AND ZGUARD TO INTRAGLUTEAL SKIN, SKIN/WOUND CARE PLAN. Addendum: 12/12/19 at 1714 by Stacie Bolanos RN Amended: Links added.
--- NOTE | 2019-12-12 11:41 | NUR ---
PT IN ULTRASOUND FOR A LEFT THORACENTESIS BY DR COLLAZO. VS 119/[id number]%. 1155: 100/53-80-20-95%. FINISHED WITH PROCEDURE. 1450 ML OF FLUID REMOVED. POST CXR DONE.
--- NOTE | 2019-12-12 12:55 | NUR ---
Patient back Patient back to unit. No signs of distress at this time, respirations even and unlabored, patient speaking with sister (on phone). Safety precautions in place, will continue to monitor.
[2019-12-12] MEDS: AZITHROMYCIN 500MG/ 250ML 250 ML IV SCH (13:33)
--- NOTE | 2019-12-12 13:42 | NUR ---
Daughter Spoke with patient's daughter regarding patient status. All questions answered.
--- NOTE | 2019-12-12 14:57 | NUR ---
Patient Rounds Patient complains of pain. Patient refused morphine stating she only wants the Tylenol for pain control.
--- NOTE | 2019-12-12 15:25 | NUR ---
Respiratory note: ABG DRAWN TO VERIFY IF PT QUALIFIES FOR HOME O2. PT PO2 IS 54.3. RN MADE AWARE THAT PT QUALIFIES FOR HOME O2.
--- NOTE | 2019-12-12 15:58 | NUR ---
Patient Rounds Patient is currently sleeping. Respirations are even and unlabored, no signs of distress at this time. Safety precautions in place, will continue to monitor.
--- NOTE | 2019-12-12 16:39 | NUR ---
Paged SS Paged division supervisor marriage and family social worker.
--- NOTE | 2019-12-12 16:48 | NUR ---
Clinical Trials Data Coordinator Spoke with Aide regarding setting up patient for home O2 for discharge 12/12.
--- NOTE | 2019-12-12 17:35 | NUR ---
Skin Care Patient cleaned and repositioned to left side. Abdominal redness improving, anti fungal cream applied per wound care recommendation; buttock skin tear cleaned, z guard applied. Perineal area cleaned, catheter repositioned to maintain skin patency. Patient shows no signs of distress, respirations are even and unlabored. Safety precautions in place, call light within reach, will continue to monitor.
--- NOTE | 2019-12-12 19:14 | NUR ---
Closing Note Report given to GEOVANNA REINOSO
[2019-12-12] MEDS: ATORVASTATIN 20 MG TAB PO SCH (21:54)
[2019-12-13] MEDS: IPRATROPIUM BROM 0.5 MG/2.5ML INH SOL NEB SCH ×3 (02:30→10:58)
[2019-12-13] MEDS: ALBUTEROL SULF 2.5 MG/0.5ML(0.5%) NEB SOLN NEB SCH ×3 (02:30→10:58)
[2019-12-13 05:15] VITALS: BP 105/54
[2019-12-13] MEDS: LACTULOSE 20Gm/30ML SOLN PO SCH (05:43)
[2019-12-13] MEDS: PROPRANOLOL HCL 20 MG TAB PO SCH (05:45)
[2019-12-13 07:07] LABS: Basophils # (auto) 0 10 ^3/uL (0-0.2); Eosinophils # (auto) 0.1 10 ^3/uL (0-0.8); Hemoglobin 10.5 g/dL (12.2-16.2); Lymphocytes # (auto) 0.5 10 ^3/uL (0.4-5.4); Mean Corpuscular Volume 104.7 fL (80.0-100.0); Monocytes # (auto) 0.6 10 ^3/uL (0-1.3)
[2019-12-13 07:10] LABS: Basophils % (auto) 0.2 % (0.0-2.0); Eosinophils % (auto) 3.1 % (0.0-7.0); Hematocrit 32.2 % (36.0-46.0); Mean Corpuscular Hemoglobin 34.1 pg (28.0-32.0); Mean Corpuscular Hgb Conc. 32.6 g/dL (32.0-36.0); Monocytes % (auto) 13.1 % (0.0-12.0); Neutrophils # (auto) 3.2 10 ^3/uL (1.6-8.6); Neutrophils % (auto) 72.6 % (37.0-80.0); Nucleated Red Blood Cells % 0.2 %; Platelet Count (auto) 63 10^3/uL (140-450); Red Blood Cells 3.08 10^6/uL (4.0-5.20); White Blood Cell 4.4 10^3/uL (4.4-10.8)
[2019-12-13 07:15] LABS: Red Cell Distribution Width 21.1 % (11.8-14.3)
[2019-12-13 07:19] LABS: Potassium 3.7 mmol/L (3.5-5.1)
[2019-12-13 07:28] LABS: Albumin 1.5 g/dL (3.4-5.0); BUN/Creatinine Ratio 18.2; Bilirubin, Total 0.6 mg/dL (0.2-1.0); Calcium 8.2 mg/dL (8.5-10.1); Total Protein 6.7 g/dL (6.4-8.2)
[2019-12-13 08:00] VITALS: BP 106/61
[2019-12-13] MEDS: AZITHROMYCIN 500MG/ 250ML 250 ML IV SCH (10:41)
[2019-12-13] MEDS: FUROSEMIDE 100 MG/10ML VIAL IV SCH (10:42)
[2019-12-13] MEDS: BUMETANIDE 1 MG TAB PO SCH (10:43)
[2019-12-13] MEDS: glipiZIDE 5 MG TAB PO SCH (10:43)
[2019-12-13] MEDS: cefTRIAXone 1GM/50ML D5W 50 ML IV SCH (10:50)
[2019-12-13 12:00] VITALS: BP 123/60
--- NOTE | 2019-12-13 14:41 | NUR ---
assessment Patient is a 76 year old female who is alert and oriented. Patients cognitive abilities are intact. Prior to admission patient lived home with family and functioned independently. Patient informed me she is able to care for her own ADLs. Per patient she will return home to her prior living arrangements post discharge and family will transport her home. Per patient she has a cpap and fww for home use. Patient has no safety issues regarding returning home on discharge. Patient has an order for home 02. Edith rodriguez will satisfy order. I informed patient she has a right to speak to a dialysis social worker regarding all care. I informed patient she has a right to participate in any and all discharge planning. Patient does not have a POA and advanced directive. I have offered patient information on POA and advanced directives. I informed the patient the advantages and benefits of having an Advanced Directive. Patient verbalized understanding and agreed to discharge plan. Addendum: 12/13/19 at 1445 by Holly RUIZ Amended: Links added.
--- NOTE | 2019-12-13 15:48 | NUR ---
D/C Planning Per SS consult for home oxygen at 4 l/min nasal cannula. Faxed order to [employer] requesting authorization for [facility]. Faxed order to [facility]. Received following called from Addy with [facility]:) advising me he spoke to patient Michael and informed him they will deliver oxygen to home and Michael will transport patient home. Patient Michael agrees to bring oxygen to hospital upon d/c day. KEMAR Falk was informed of d/c plan.
[2019-12-13 17:00] VITALS: BP 107/56
--- NOTE | 2019-12-13 17:08 | NUR ---
D/C Pending Pulmonology Dr. Madrid stated to discharge the patient but to make sure she was cleared by pulmonology. I left several messages with Dr. Clark but was unsuccessful in reaching him. Also tried to contact Dr. Madrid about the situation but was also unsuccessful reaching him. Looked at Dr. Clark's last note on the patient and he appears to clear the patient stating her care was up to the Hospitalist at this point. That note was dated yesterday, 12/12/2019. Will discharge the patient promptly as her family has been waiting for over an hour.
== END 2019-12-13 17:20 | disposition home or self-care (01) | DRG 194 ==
LOC: EDUNIT# 18:28 → EDBD 18:28 → ER 18:28 → TELE 18:29 → TELE-CENTR 23:04
PROVIDERS: ADMIT Internal Medicine; ATTEND Internal Medicine
PROC: 5A09357 Assistance with Respiratory Ventilation, Less than 24 Consecutive Hours, Continuous Positive Airway Pressure (ICD-10-PCS; principal; 2019-12-10)
PROC: 0W993ZZ Drainage of Right Pleural Cavity, Percutaneous Approach (ICD-10-PCS; 2019-12-10)
PROC: 0W9B3ZZ Drainage of Left Pleural Cavity, Percutaneous Approach (ICD-10-PCS; 2019-12-12)
DX: I13.0 Hypertensive heart and chronic kidney disease with heart failure and stage 1 through stage 4 chronic kidney disease, or unspecified chronic kidney disease (principal); N17.0 Acute kidney failure with tubular necrosis; J96.01 Acute respiratory failure with hypoxia; J96.02 Acute respiratory failure with hypercapnia; I50.43 Acute on chronic combined systolic (congestive) and diastolic (congestive) heart failure; J90 Pleural effusion, not elsewhere classified; E87.5 Hyperkalemia; D72.829 Elevated white blood cell count, unspecified; E78.5 Hyperlipidemia, unspecified; K74.60 Unspecified cirrhosis of liver; E11.22 Type 2 diabetes mellitus with diabetic chronic kidney disease; N18.9 Chronic kidney disease, unspecified; Z79.84 Long term (current) use of oral hypoglycemic drugs; Z79.899 Other long term (current) drug therapy; Z82.3 Family history of stroke; Z83.3 Family history of diabetes mellitus; Z86.73 Personal history of transient ischemic attack (TIA), and cerebral infarction without residual deficits; E87.2 Acidosis
CPT/HCPCS: 10022; 32555; 36415; 36600; 71045; 71250; 76604; 76942; 78582; 80053; 82140; 82805; 82962; 83880; 83986; 84484; 85025; 85610; 85730; 87081; 87205; 89051; 93005; 93306; 93970; 94640; 94660; 94762; 96365; 96375; G0378; J0696

== ENCOUNTER 2019-12-17 08:15 | Inpatient (IN) | payer MEDICAID ==
[~2019-12-17] VITALS: Ht 170.2 cm; Wt 85.6 kg
[~2019-12-17 08:15] MED LIST changes: +LACT10SO3 PO
[2019-12-17 09:03] LABS: Basophils # (auto) 0 10 ^3/uL (0-0.2); Hemoglobin 11.8 g/dL (12.2-16.2); Lymphocytes # (auto) 0.6 10 ^3/uL (0.4-5.4); Mean Corpuscular Volume 103.2 fL (80.0-100.0); Monocytes # (auto) 0.8 10 ^3/uL (0-1.3); Neutrophils # (auto) 5.4 10 ^3/uL (1.6-8.6)
[2019-12-17 09:05] LABS: Basophils % (auto) 0.3 % (0.0-2.0); Eosinophils # (auto) 0 10 ^3/uL (0-0.8); Eosinophils % (auto) 0.7 % (0.0-7.0); Hematocrit 36.5 % (36.0-46.0); Lymphocytes % (auto) 8.5 % (10.0-50.0); Mean Corpuscular Hemoglobin 33.3 pg (28.0-32.0); Mean Corpuscular Hgb Conc. 32.2 g/dL (32.0-36.0); Monocytes % (auto) 11.5 % (0.0-12.0); Nucleated Red Blood Cells % 0.2 %; Platelet Count (auto) 122 10^3/uL (140-450); Red Blood Cells 3.54 10^6/uL (4.0-5.20); White Blood Cell 6.8 10^3/uL (4.4-10.8)
[2019-12-17 09:07] LABS: Red Cell Distribution Width 20.2 % (11.8-14.3)
[2019-12-17 09:16] LABS: INR 1.3 (0.9-1.15); Partial Thromboplastin Time 33.9 sec (23.64-32.05)
[2019-12-17 09:19] LABS: Albumin 1.9 g/dL (3.4-5.0); Calcium 9.9 mg/dL (8.5-10.1); Potassium 4.6 mmol/L (3.5-5.1)
[2019-12-17 09:24] LABS: BUN/Creatinine Ratio 18.7; Total Protein 8.9 g/dL (6.4-8.2)
[2019-12-17] MEDS ORDERED: LACTULOSE 20Gm/30ML SOLN PO ONE (10:15)
[2019-12-17] MEDS ORDERED: NITROGLYCERIN 0.4 MG SL TAB SL PRN (11:15)
[2019-12-17] MEDS ORDERED: MORPHINE SULF INJ 2 MG/ML SYRINGE 1ML IV PRN (11:15)
[2019-12-17] MEDS: FERROUS SULFATE 325 MG TAB PO SCH ×2 (12:00→17:44)
[2019-12-17] MEDS ORDERED: SODIUM CHLORIDE 0.9% 250 ML IV ONE (13:15)
[2019-12-17] MEDS ORDERED: SODIUM CHLORIDE 0.9% 1,000 ML IV ONE (13:30)
[2019-12-17] MEDS: PROPRANOLOL HCL 20 MG TAB PO SCH ×2 (13:31→21:07)
[2019-12-17 14:14] LABS: Lactic Acid w/Reflex 5.8 mmol/L (0.4-2.0)
[2019-12-17 15:20] LABS: Urine Bacteria FEW /hpf (None Seen); Urine Blood Negative /uL (Negative); Urine Specific Gravity 1.013 (1.001-1.035); Urine WBC <1 /hpf (0 - 5)
[2019-12-17 16:43] VITALS: BP 100/50
[2019-12-17] MEDS: glipiZIDE 5 MG TAB PO SCH (16:51)
[2019-12-17] MEDS ORDERED: metFORMIN HYDROCHLORIDE 500 MG TAB PO SCH (18:00)
[2019-12-17 18:32] VITALS: BP 99/49
--- NOTE | 2019-12-17 19:15 | NUR ---
OPENING SHIFT NOTE RECEIVED REPORT FROM DAY NURSE. PT JUST ADMITTED TO [facility]. NO PAIN OR S/S OF RESPIRATORY DISTRESS. COMPLETE PHYSICAL ASSESSMENT UNDER INTERVENTIONS. CALL LIGHT WITHIN REACH AND BED LOCKED FOR SAFETY. WILL CONTINUE TO MONITOR.
--- NOTE | 2019-12-17 19:34 | NUR ---
Admit to [facility] at 1858 Daryl ARAGONdmitted to [facility] via gurney on sales consultant residential manager, and portable 02. Patient transfered to bed, connected to unit monitoring and oxygen, and weighed by bedscale. Patient oriented to Veronica Macias RN primary RN, unit, room, bed, and unit policy. l NOTE: Arrived lethargic but able to follow simple direction and state name. Had been on BIPAP but currently utilizing a nasal cannula at 3L/min and in no acute distress. Report given to Griffin REINOSO who will resume care and admit patient.
[2019-12-17 19:37] VITALS: BP 92/33
[2019-12-17 20:00] VITALS: BP 100/37
--- NOTE | 2019-12-17 20:30 | NUR ---
SON CALLED PROVIDED PASSWORD. UPDATED ON PTS STATUS. POC REVIEWED.
--- NOTE | 2019-12-17 21:09 | NUR ---
PAGED DR ESTRADA REGARDING LOWERING BP READINGS AND TREND.
[2019-12-17 22:05] VITALS: BP 100/50
[2019-12-17 23:14] VITALS: BP 100/41
[2019-12-18] VITALS (20 sets, daily range): BP systolic 84–113; BP diastolic 36–52
[2019-12-18] MEDS: ACCU-CHEK COMFORT CURVE STRIP VI SCH ×4 (00:14→17:57)
--- NOTE | 2019-12-18 01:29 | NUR ---
PT SLEEPING NO DISTRESS NOTED.
[2019-12-18 05:18] LABS: Basophils # (auto) 0 10 ^3/uL (0-0.2); Basophils % (auto) 0.1 % (0.0-2.0); Eosinophils # (auto) 0 10 ^3/uL (0-0.8); Lymphocytes # (auto) 0.5 10 ^3/uL (0.4-5.4); Monocytes # (auto) 0.7 10 ^3/uL (0-1.3); Neutrophils % (auto) 80.2 % (37.0-80.0); Platelet Count (auto) 76 10^3/uL (140-450); White Blood Cell 6.4 10^3/uL (4.4-10.8)
[2019-12-18 05:27] LABS: Eosinophils % (auto) 0.2 % (0.0-7.0); Hematocrit 30.2 % (36.0-46.0); Hemoglobin 9.9 g/dL (12.2-16.2); Lymphocytes % (auto) 8.3 % (10.0-50.0); Mean Corpuscular Hemoglobin 33.7 pg (28.0-32.0); Mean Corpuscular Hgb Conc. 32.7 g/dL (32.0-36.0); Monocytes % (auto) 11.2 % (0.0-12.0); Neutrophils # (auto) 5.1 10 ^3/uL (1.6-8.6); Nucleated Red Blood Cells % 0.2 %; Red Blood Cells 2.93 10^6/uL (4.0-5.20); Red Cell Distribution Width 19.9 % (11.8-14.3)
[2019-12-18] MEDS: PROPRANOLOL HCL 20 MG TAB PO SCH ×3 (05:31→21:25)
[2019-12-18 05:41] LABS: Albumin 1.5 g/dL (3.4-5.0); Calcium 9.6 mg/dL (8.5-10.1); Potassium 4.5 mmol/L (3.5-5.1)
[2019-12-18 05:45] LABS: BUN/Creatinine Ratio 20.7; Bilirubin, Total 0.9 mg/dL (0.2-1.0); Total Protein 6.9 g/dL (6.4-8.2)
[2019-12-18] MEDS: glipiZIDE 5 MG TAB PO SCH (06:03)
--- NOTE | 2019-12-18 07:45 | NUR ---
FAMILY CALLED NO ANSWER. REASON FOR CALL IS TO CONSENT FOR RIGHT THORACENTESIS NOTED ON DR. FRANKS NOTES.
--- NOTE | 2019-12-18 07:50 | NUR ---
CARE ENDORSED TO DAY NURSE NO S/S OF RESPIRATORY DISTRESS AND CALL LIGHT WITHIN REACH.
[2019-12-18] MEDS: FERROUS SULFATE 325 MG TAB PO SCH ×3 (08:00→17:57)
--- NOTE | 2019-12-18 08:00 | NUR ---
Received call from patient's daughter Estefania, able to provide password. Updated on patient's status and POC. Informed of plan to do another ultrasound guided thoracentesis today, daughter verbalized understanding gave telephone consent. All questions and concerns addressed.
--- NOTE | 2019-12-18 08:15 | NUR ---
Opening Shift Note Assumed care of patient, laying in bed, eyes closed, arousable to voice. Primary Nigerian speaking, Ely RN at bedside to translate. Patient oriented x3, re-oriented to time. No S/S of distress/SOB or pain. Patient on BIPAP 15/5, rate 12, 30% FIO2, saturation 98%. See interventions for complete assessment. Bed locked on low position, side rails up x2, bed alarms on at all times, call anaya within reach, instructed on POC and to call for assist PRN, will continue to monitor for changes Q1hr and PRN.
--- NOTE | 2019-12-18 09:20 | NUR ---
Dr Veronica at bedside, updated on patient's status. Informed of patient's BUN and Creatinine levels, low urine out, history of chronic kidney disease. MD verbalized understanding. Patient seen and examined. Received verbal order for Nephro consult. Orders read back and verified. Will carry out.
[2019-12-18] MEDS ORDERED: BUMETANIDE 1 MG TAB PO SCH (10:00)
[2019-12-18] MEDS ORDERED: SPIRONOLACTONE 25 MG TAB PO SCH (10:00)
[2019-12-18] MEDS ORDERED: LISINOPRIL 20 MG TAB PO SCH (10:00)
[2019-12-18] MEDS: CHOLECALCIFEROL (VITD3) 1,000UNIT=25mCg TAB PO SCH (10:00)
[2019-12-18] MEDS ORDERED: FUROSEMIDE 40 MG/4 ML VIAL IV SCH (10:00)
[2019-12-18] MEDS: ATORVASTATIN 20 MG TAB PO SCH (10:00)
[2019-12-18] MEDS: PANTOPRAZOLE 40 MG TAB PO SCH (10:00)
--- NOTE | 2019-12-18 10:00 | NUR ---
Po meds not given at this time, patient on BIPAP at this time and not awake enough to swallow.
--- NOTE | 2019-12-18 11:00 | NUR ---
Called pharmacy regarding patient's Lasix IV, spoke to Aide, will send med.
[2019-12-18] MEDS ORDERED: FUROSEMIDE 100 MG/10ML VIAL IV SCH (11:10)
[2019-12-18] MEDS ORDERED: BUME1TAB3 PO (11:22)
[2019-12-18] MEDS ORDERED: ALBUMIN 5% 250 ML IV ONE ×2 (12:45→20:00)
--- NOTE | 2019-12-18 12:45 | NUR ---
Dr Hernandez at bedside, updated on patient's status. Informed of patient's decreased urine output and BP. Patient seen and examined. Will carry out new orders.
--- NOTE | 2019-12-18 14:45 | NUR ---
Patient had large amount of soft brown stool. Patient given perineal care. Skin integrity assessed for any changes. Linens changed. Z guard applied and optifoam gentle placed on sacrum. Patient repositioned for comfort.
--- NOTE | 2019-12-18 14:50 | NUR ---
urine sample sent to lab
[2019-12-18 15:14] LABS: Creatinine, Urine 134 mg/dL (30.0-125.0); Sodium Urine 28 mmol/L (40-220)
--- NOTE | 2019-12-18 16:15 | NUR ---
Patient s/p RT Thoracentesis by Dr Clark, drained 1850 ml. Patient tolerated well, MD aware of low BP, will continue to monitor.
--- NOTE | 2019-12-18 16:45 | NUR ---
Pleural fluid sent to lab.
[2019-12-18] MEDS ORDERED: DEXTROSE (50%) 50ML SYRG IV PRN (17:30)
[2019-12-18] MEDS: InsuLIN REG 1unit/0.01ml Soln (100units/ml) SC SCH (17:58)
--- NOTE | 2019-12-18 17:58 | NUR ---
Patient's blood sugar 158mg/dl, 2 units HR held due to poor oral intake, patient on BIPAP.
--- NOTE | 2019-12-18 18:48 | NUR ---
Patient switched from BIPAP to 4 LPM oxygen via oxymizer, patient saturation 1-- Addendum: 12/18/19 at 1850 by Cristal Ambrosio RN continuation: patient saturation 100%, will continue to monitor.
--- NOTE | 2019-12-18 19:20 | NUR ---
opening note received report from day nurse. assumed care of pt in room 265. awake and alert, no distress noted, using nc. arana draining to gravity. complete physical assessment under interventions. call light within reach and bed locked for safety. will continue to monitor.
[2019-12-19] VITALS: BP 96/41
[2019-12-19] MEDS: ACCU-CHEK COMFORT CURVE STRIP VI SCH ×5 (00:09→23:42)
[2019-12-19] MEDS: InsuLIN REG 1unit/0.01ml Soln (100units/ml) SC SCH ×5 (00:09→23:35)
--- NOTE | 2019-12-19 01:14 | NUR ---
Respiratory note: PT REMAINS OFF BIPAP AND IN NO DISTRESS. SPO2 98% ON 3L NC, HR 84, RR 17. PT SLEEPING COMFORTABLY.
[2019-12-19 04:00] VITALS: BP 91/39
[2019-12-19] MEDS: PROPRANOLOL HCL 20 MG TAB PO SCH ×3 (05:27→21:32)
[2019-12-19 05:39] LABS: Calcium 9.4 mg/dL (8.5-10.1); Potassium 4.1 mmol/L (3.5-5.1)
[2019-12-19 05:41] LABS: BUN/Creatinine Ratio 25.1
--- NOTE | 2019-12-19 07:33 | NUR ---
RECD PT OFF BIPAP AND ON 3LNC, SPO2 98%. NO RESPIRATORY DISTRESS NOTED. BIPAP AT BEDSIDE.
[2019-12-19 07:40] VITALS: BP 98/47
--- NOTE | 2019-12-19 08:00 | NUR ---
Opening Shift Note Assumed care of patient, awake and alert. Patient primary Israeli speaking but able to communicate in simple Kyrgyz. No S/S of distress/SOB or pain. Patient saturation 97% at 3 LPM oxygen via nasal cannula. See interventions for complete assessment. Bed locked on low position, side rails up x2, bed alarms on at all times, call anaya within reach, instructed on POC and to call for assist PRN, will continue to monitor for changes Q1hr and PRN.
[2019-12-19] MEDS ORDERED: ALBUMIN 5% 250 ML IV ONE (08:30)
[2019-12-19] MEDS ORDERED: levoFLOXacin 500 MG TAB PO ONE (08:30)
[2019-12-19] MEDS ORDERED: MIDODRINE HCL 10 MG TAB PO ONE (08:30)
[2019-12-19] MEDS: PANTOPRAZOLE 40 MG TAB PO SCH (09:34)
[2019-12-19] MEDS: CHOLECALCIFEROL (VITD3) 1,000UNIT=25mCg TAB PO SCH (09:35)
[2019-12-19] MEDS: ATORVASTATIN 20 MG TAB PO SCH (09:35)
[2019-12-19] MEDS: FERROUS SULFATE 325 MG TAB PO SCH ×3 (09:35→18:23)
[2019-12-19] MEDS: levoFLOXacin 500 MG TAB PO SCH (09:37)
[2019-12-19] MEDS: ACETAMINOPHEN 500 MG TAB PO PRN (09:47)
--- NOTE | 2019-12-19 09:47 | NUR ---
Patient complaining of body ache 2/10, Tylenol PRN given. Will continue to monitor.
[2019-12-19] MEDS ORDERED: FUROSEMIDE 40 MG/4 ML VIAL IV SCH (10:00)
[2019-12-19 11:40] VITALS: BP 105/40
--- NOTE | 2019-12-19 12:05 | NUR ---
Dr Hernandez at bedside, updated on patient's status. Informed of BUN and creatinine trending up. Patient seen and examined. Will carry out new orders.
[2019-12-19 12:15] LABS: Basophils # (auto) 0 10 ^3/uL (0-0.2); Eosinophils # (auto) 0.1 10 ^3/uL (0-0.8); Hemoglobin 8.3 g/dL (12.2-16.2); Lymphocytes # (auto) 0.4 10 ^3/uL (0.4-5.4); Monocytes # (auto) 0.6 10 ^3/uL (0-1.3); Neutrophils # (auto) 3.9 10 ^3/uL (1.6-8.6)
[2019-12-19 12:16] LABS: Basophils % (auto) 0.2 % (0.0-2.0); Eosinophils % (auto) 1.8 % (0.0-7.0); Lymphocytes % (auto) 8.4 % (10.0-50.0); Neutrophils % (auto) 77.6 % (37.0-80.0); Nucleated Red Blood Cells % 0.2 %; Platelet Count (auto) 56 10^3/uL (140-450); White Blood Cell 5.1 10^3/uL (4.4-10.8)
[2019-12-19] MEDS: MIDODRINE HCL 10 MG TAB PO SCH ×2 (12:32→18:23)
[2019-12-19] MEDS: ALBUMIN 25% 50 ML IV SCH ×2 (14:51→21:26)
[2019-12-19 15:40] VITALS: BP 106/43
--- NOTE | 2019-12-19 16:14 | NUR ---
Dr Clark at bedside, updated on patient's status. Patient seen and examined. Will carry out new orders.
--- NOTE | 2019-12-19 18:00 | NUR ---
Kidney ultrasound being done at bedside.
--- NOTE | 2019-12-19 19:15 | NUR ---
Opening Shift Note Patient, awake and alert. No S/S of distress/SOB or pain. Instructed on POC and to call for assist PRN, will continue to monitor for changes Q1hr and PRN.complete physical assessment under interventions. call light within reach and bed locked for safety.
[2019-12-19 20:00] VITALS: BP 115/47
[2019-12-20] VITALS (66 sets, daily range): BP systolic 81–144; BP diastolic 32–99
--- NOTE | 2019-12-20 00:06 | NUR ---
Respiratory note: PT RECIEVED ON NC2L. PT IS SLEEPING AT THIS TIME. NO RESP DISTRESS NOTED. SPO2 96%, HR 67, RR 19. NO INDICATIONS FOR BIPAP NOTED AT THIS TIME. WILL CONTINUE TO MONITOR PT T/O SHIFT.
--- NOTE | 2019-12-20 04:37 | NUR ---
Linen change Bed side bath given. pt connected back to monitor so will continue to monitor.
[2019-12-20] MEDS: InsuLIN REG 1unit/0.01ml Soln (100units/ml) SC SCH ×3 (05:25→18:28)
[2019-12-20] MEDS: ACCU-CHEK COMFORT CURVE STRIP VI SCH ×3 (05:26→18:11)
[2019-12-20] MEDS: PROPRANOLOL HCL 20 MG TAB PO SCH (05:27)
[2019-12-20] MEDS: ALBUMIN 25% 50 ML IV SCH (05:29)
[2019-12-20 05:38] LABS: Basophils # (auto) 0 10 ^3/uL (0-0.2); Eosinophils # (auto) 0.1 10 ^3/uL (0-0.8); Eosinophils % (auto) 1.7 % (0.0-7.0); Hemoglobin 8.7 g/dL (12.2-16.2); Red Cell Distribution Width 19.2 % (11.8-14.3)
[2019-12-20] MEDS: MIDODRINE HCL 10 MG TAB PO SCH ×3 (05:42→18:11)
[2019-12-20 05:43] LABS: Basophils % (auto) 0.1 % (0.0-2.0); Lymphocytes # (auto) 0.4 10 ^3/uL (0.4-5.4); Lymphocytes % (auto) 8.2 % (10.0-50.0); Mean Corpuscular Hemoglobin 33.6 pg (28.0-32.0); Mean Corpuscular Hgb Conc. 33.3 g/dL (32.0-36.0); Mean Corpuscular Volume 100.9 fL (80.0-100.0); Monocytes # (auto) 0.6 10 ^3/uL (0-1.3); Monocytes % (auto) 12.8 % (0.0-12.0); Neutrophils # (auto) 3.9 10 ^3/uL (1.6-8.6); Neutrophils % (auto) 77.2 % (37.0-80.0); Nucleated Red Blood Cells % 0.1 %; Platelet Count (auto) 59 10^3/uL (140-450); Red Blood Cells 2.58 10^6/uL (4.0-5.20)
--- NOTE | 2019-12-20 05:51 | NUR ---
morning lab BMP pending.
[2019-12-20 05:54] LABS: BUN/Creatinine Ratio 27.5; Calcium 9.3 mg/dL (8.5-10.1); Potassium 4.7 mmol/L (3.5-5.1)
--- NOTE | 2019-12-20 08:20 | NUR ---
Opening Shift Note Assumed care of patient, awake and alert, lying on the bed and watching TV and having breakfast. No S/S of distress/SOB or pain noted. Instructed on POC and to call for assist PRN, will continue to monitor for changes Q1hr and PRN. SBP 80-90 mmHg, on O2 NC 2 LPM O2 saturation 92-94% , no complaining of SOB noted.
[2019-12-20] MEDS: FERROUS SULFATE 325 MG TAB PO SCH ×3 (08:34→18:11)
[2019-12-20] MEDS: ATORVASTATIN 20 MG TAB PO SCH (08:34)
[2019-12-20] MEDS: levoFLOXacin 500 MG TAB PO SCH (08:35)
[2019-12-20] MEDS: PANTOPRAZOLE 40 MG TAB PO SCH (08:35)
[2019-12-20] MEDS: CHOLECALCIFEROL (VITD3) 1,000UNIT=25mCg TAB PO SCH (08:35)
[2019-12-20] MEDS: ONDANSETRON HCL 4 MG/2 ML VIAL IV PRN (08:43)
--- NOTE | 2019-12-20 09:30 | NUR ---
BP 85/40 mmHg, lying flat O2 saturation 91%, increased O2 NC to 3 LPM, O2 saturation 94-95% able to tolerated with lying flat with a little bit elevated of HOB, rechecked BP 109/39 mmHg MAP 62, will continue to monitor and care.
--- NOTE | 2019-12-20 11:44 | NUR ---
Dr. Norris at the bedside, seen and examined patient at t his time, plan of care discussed with patient. Called and left the message to Dr. Veronica regarding her BP. Dr. Norris would like to keep MAP> 65 mmHg, waiting MD to call back for treatment.
--- NOTE | 2019-12-20 12:45 | NUR ---
Received a call back from Dr. Veronica, received order for Levophed for keeping MAP> [address] Norris recommendation, will carry out. Patient agreed with the plan.
[2019-12-20] MEDS: NOREPINEPHRINE 8 MG/250ML KIT 250 ML IV SCH (13:00)
--- NOTE | 2019-12-20 13:30 | NUR ---
Started Levophed at this time 1.30pm. Patient had lunch around 30%, no N/V noted. Patient made aware that we will transfer to ICU for close monitor BP.
--- NOTE | 2019-12-20 14:28 | NUR ---
Called and gave a report to Vladislav REINOSO.
--- NOTE | 2019-12-20 14:45 | NUR ---
IV removal from right AC IV DC'd with sterile technique, catheter fully intact. Pressure dressing applied to site. Patient tolerated procedure well.
--- NOTE | 2019-12-20 14:48 | NUR ---
IV insertion IV access obtained, via clean sterile technique by inserting 20 gauge catheter at left hand after 3 attempt(s). IV secured properly. No trauma to site. Patient tolerated procedure well.
--- NOTE | 2019-12-20 14:49 | NUR ---
Patient transferred to ICU, connected to monitor and O2 tank. Levophed iv 8 mcg/min.
--- NOTE | 2019-12-20 15:00 | NUR ---
ARRIVED TO ICU BED 101, ORIENTED TO UNIT, ROOM AND ADAMARIS RN. PATIENT ON LEVOPHED 10 MCG/MIN. A/O X 4. DENIES ANY PAIN AND NO SIGNS OF RESP DISTRESS ON 2 LPM 02 VIA NC. CALL LIGHT IN REACH, BED IN LOW POSITION.
--- NOTE | 2019-12-20 15:38 | NUR ---
DR ESTRADA AT BEDSIDE, DR GAVE ORDER FOR CARDIOLOGY CONSULT DR PERRY FOR HYPOTENSION
--- NOTE | 2019-12-20 16:40 | NUR ---
DR FRANKS AT BEDSIDE, CXR COMPLETED PER ORDER. INCREASED LEVOPHED TO 10 MCG/MIN DUE TO MAP 59.
--- NOTE | 2019-12-20 18:00 | NUR ---
PLACED PREVENTATIVE OPTIFOAM TO PATIENT SACRUM DUE TO BLANCHABLE REDNESS ENCOURAGED TURNING/REPOSITIONING PATIENT AND VERBALIZED UNDERSTANDING
--- NOTE | 2019-12-20 19:30 | NUR ---
REPORT RECEIVED, ASSUMED CARE.
[2019-12-21] VITALS (84 sets, daily range): BP systolic 97–144; BP diastolic 35–66
[2019-12-21] MEDS: ACCU-CHEK COMFORT CURVE STRIP VI SCH ×4 (03:42→17:29)
[2019-12-21] MEDS: InsuLIN REG 1unit/0.01ml Soln (100units/ml) SC SCH ×4 (03:43→17:54)
[2019-12-21 04:28] LABS: BUN/Creatinine Ratio 25.1; Calcium 8.9 mg/dL (8.5-10.1); Potassium 5.1 mmol/L (3.5-5.1)
[2019-12-21] MEDS: MIDODRINE HCL 10 MG TAB PO SCH ×3 (06:29→17:51)
[2019-12-21] MEDS: NOREPINEPHRINE 8 MG/250ML KIT 250 ML IV SCH (06:32)
[2019-12-21] MEDS: FERROUS SULFATE 325 MG TAB PO SCH ×3 (08:03→17:51)
--- NOTE | 2019-12-21 08:38 | NUR ---
ASSESSMENT COMPLETED, SEE INTERVENTIONS. A/OX4 SITTING UP IN BED ON PERSONAL CELL PHONE WITH FAMILY. DENIES ANY PAIN. NO RESP DISTRESS NOTED ON 3 LPM 02 VIA NC. LEVOPHED INFUSING AT 6 MCG/MIN INTO LEFT FA 20G WITH SITE ASYMPTOMATIC. SEE IV SPREADSHEET FOR TITRATION RATES AND BLOOD PRESSURE READINGS. BED IN LOW POSITION CALL LIGHT IN REACH.
[2019-12-21 08:54] LABS: Basophils # (auto) 0 10 ^3/uL (0-0.2); Eosinophils # (auto) 0.1 10 ^3/uL (0-0.8); Eosinophils % (auto) 1.3 % (0.0-7.0); Hemoglobin 9.6 g/dL (12.2-16.2); Lymphocytes # (auto) 0.7 10 ^3/uL (0.4-5.4); Nucleated Red Blood Cells % 0.5 %; Red Cell Distribution Width 19.2 % (11.8-14.3)
[2019-12-21 08:57] LABS: Basophils % (auto) 0.3 % (0.0-2.0); Hematocrit 28.7 % (36.0-46.0); Lymphocytes % (auto) 6.6 % (10.0-50.0); Mean Corpuscular Hgb Conc. 33.3 g/dL (32.0-36.0); Mean Corpuscular Volume 101.8 fL (80.0-100.0); Monocytes # (auto) 1.2 10 ^3/uL (0-1.3); Monocytes % (auto) 11.4 % (0.0-12.0); Neutrophils # (auto) 8.5 10 ^3/uL (1.6-8.6); Neutrophils % (auto) 80.4 % (37.0-80.0); Platelet Count (auto) 123 10^3/uL (140-450); Red Blood Cells 2.82 10^6/uL (4.0-5.20); White Blood Cell 10.6 10^3/uL (4.4-10.8)
--- NOTE | 2019-12-21 09:00 | NUR ---
DR ESTRADA AT BEDSIDE DR AWARE OF AMMONIA LEVEL, DR GAVE NEW ORDER FOR LACTULOSE 30 ML PO Q6H.
--- NOTE | 2019-12-21 09:03 | NUR ---
SPOKE WITH DR GOMES, AWARE OF URINE OUTPUT AWARE LEVOPHED AT 6 MCG/MIN. DR AWARE BUN/CREATININE.
[2019-12-21] MEDS: ATORVASTATIN 20 MG TAB PO SCH (09:54)
[2019-12-21] MEDS: levoFLOXacin 250 MG TAB PO SCH (09:54)
[2019-12-21] MEDS: CHOLECALCIFEROL (VITD3) 1,000UNIT=25mCg TAB PO SCH (09:54)
[2019-12-21] MEDS: PANTOPRAZOLE 40 MG TAB PO SCH (09:55)
[2019-12-21] MEDS ORDERED: FUROSEMIDE 100 MG/10ML VIAL IV ONE (10:15)
[2019-12-21 12:15] LABS: INR 1.59 (0.9-1.15)
[2019-12-21] MEDS: LACTULOSE 20Gm/30ML SOLN PO SCH ×2 (12:26→17:51)
--- NOTE | 2019-12-21 12:30 | NUR ---
DR MIREYA KEY WITH PICC LINE PLACEMENT
--- NOTE | 2019-12-21 13:00 | NUR ---
DR FRANKS GAVE ORDER FOR PICC LINE DUE TO INABILITY TO OBTAIN 2ND PIV ACCESS. LEVOPHED/LASIX NOT COMPATIBLE AND PATIENT DC'D EJ THIS AM.
--- NOTE | 2019-12-21 13:32 | NUR ---
NUTRITION ASSESSMENT NOTES Please refer to link notes of nutrition screen form filed under the intervention section of the plan of care for further details. Est. Energy Needs: 6156-0321 kcal (18-22 kcal/kg BW). Est. Protein Needs: 68-85 gms/day (0.8-1.0 gms/kg BW). Will continue to monitor pertinent labs and reassess nutrient need prn Addendum: 12/21/19 at [address] Amended: Links added.
[2019-12-21] MEDS ORDERED: LIDOCAINE 1% (LOCAL ANESTH.) PF 5ml SDV ID ONE (13:45)
--- NOTE | 2019-12-21 14:27 | NUR ---
PICC line placement Patient educated on need for PICC line placement. All risks and benefits explained and all questions and concerns addressed prior to procedure. Noted past medical history and allergies with no contraindications. INR and Plt counts within acceptable range. 5fr PICC line inserted via right brachial vein using [employer] US and Tip Location System. Sterile technique with maximum barrier precautions utilized. Blood return obtained from each of three lumens and each flushed easily with NS using proper technique. PICC secured with Stat-lock; biodisc and occlusive dressing applied. Stat portable chest x-ray obtained for PICC tip placement. *Baseline Arm Circumference 29cm. Internal length 47cm. External length 0cm. PICC lot #[id number]
--- NOTE | 2019-12-21 14:28 | NUR ---
Okay to use PICC line Xray completed and reviewed. Okay to use PICC line. Primary RN notified.
--- NOTE | 2019-12-21 14:28 | NUR ---
REPORT GIVEN TO RADHA REINOSO. PICC LINE INSERTED AND IN PLACE PER PICC LINE RN. THIS RN WILL START LASIX GTT PRIOR TO ENDORSING CARE.
[2019-12-21] MEDS: FUROSEMIDE INJECTION 100 MG in D5W 5% 100 ML IV SCH (14:41)
[2019-12-21] MEDS: ALBUMIN 25% 100 ML IV SCH ×2 (15:34→23:30)
--- NOTE | 2019-12-21 16:50 | NUR ---
DR. PERRY HERE TO SEE PATIENT. SEE MD NOTES AND EMR FOR ANY NEW ORDERS.
[2019-12-21] MEDS: SODIUM CHLOR 0.9% PF (SALINE LOCK) 10ML VIAL/SYR IV SCH (22:13)
[2019-12-22] VITALS (82 sets, daily range): BP systolic 93–151; BP diastolic 30–71
[2019-12-22] MEDS: LACTULOSE 20Gm/30ML SOLN PO SCH ×5 (00:08→23:32)
[2019-12-22 03:46] LABS: Basophils # (auto) 0 10 ^3/uL (0-0.2); Basophils % (auto) 0.1 % (0.0-2.0); Eosinophils # (auto) 0.1 10 ^3/uL (0-0.8); Hematocrit 24.9 % (36.0-46.0); Hemoglobin 8.3 g/dL (12.2-16.2); Lymphocytes # (auto) 0.5 10 ^3/uL (0.4-5.4); Mean Corpuscular Hemoglobin 33.6 pg (28.0-32.0); Mean Corpuscular Hgb Conc. 33.5 g/dL (32.0-36.0); Monocytes # (auto) 0.8 10 ^3/uL (0-1.3); Neutrophils # (auto) 5.4 10 ^3/uL (1.6-8.6); Platelet Count (auto) 68 10^3/uL (140-450); Red Blood Cells 2.48 10^6/uL (4.0-5.20); Red Cell Distribution Width 18.8 % (11.8-14.3); White Blood Cell 6.7 10^3/uL (4.4-10.8)
[2019-12-22 03:49] LABS: Eosinophils % (auto) 1.2 % (0.0-7.0); Lymphocytes % (auto) 7.1 % (10.0-50.0); Mean Corpuscular Volume 100.3 fL (80.0-100.0); Monocytes % (auto) 12.2 % (0.0-12.0); Neutrophils % (auto) 79.4 % (37.0-80.0); Nucleated Red Blood Cells % 0.1 %
[2019-12-22 04:06] LABS: Calcium 9.3 mg/dL (8.5-10.1); Potassium 3.7 mmol/L (3.5-5.1)
[2019-12-22] MEDS: MIDODRINE HCL 10 MG TAB PO SCH ×3 (06:17→17:46)
[2019-12-22] MEDS: ACCU-CHEK COMFORT CURVE STRIP VI SCH ×5 (06:20→22:56)
[2019-12-22] MEDS: InsuLIN REG 1unit/0.01ml Soln (100units/ml) SC SCH ×5 (06:20→23:01)
--- NOTE | 2019-12-22 07:55 | NUR ---
ASSESS- PT. LYING IN BED AWAKE, ALERT AND ORIENTED TIMES FOUR. DENIES ANY PAIN OR DISCOMFORT AT THIS TIME. LUNGS CLEAR ALDA. INSPIRATORY AND EXPIRATORY. NO SOB. O2 3L N/C. NO COUGH. ABD. SOFT, FLAT, NON-TENDER. BOWEL SOUNDS ALL FOUR QUADRANTS. NO N/V. F/C TO GRAVITY WITH CLEAR YELLOW URINE. PICC GURVINDER TLC INTACT. LEVOPHED GTT. AT 8 MCGS. TO KEEP MAP >65. LASIX GTT. AT 4.4 CC/HR. RADIAL PULSES STRONG, PALPABLE ALDA. DORSALIS PEDAL PULSES STRONG, PALPABLE ALDA. NO EDEMA. SKIN INTACT. SACRUM PINK, BLANCHABLE. PT. MOVES UPPER AND LOWER EXTREMITIES ALDA. WITHOUT DIFFICULTY. ABLE TO TURN SELF IN BED.
[2019-12-22] MEDS: FERROUS SULFATE 325 MG TAB PO SCH ×3 (08:36→17:46)
--- NOTE | 2019-12-22 09:15 | NUR ---
PT. ASKED FOR BEDPAN AND HAD SM. LOOSE BROWN STOOL. PERICARE DONE AND LINENS CHANGED. PT.TOLERATED WELL.
[2019-12-22] MEDS: PANTOPRAZOLE 40 MG TAB PO SCH (09:42)
[2019-12-22] MEDS: levoFLOXacin 250 MG TAB PO SCH (09:42)
[2019-12-22] MEDS: SODIUM CHLOR 0.9% PF (SALINE LOCK) 10ML VIAL/SYR IV SCH ×2 (09:43→22:08)
[2019-12-22] MEDS: CHOLECALCIFEROL (VITD3) 1,000UNIT=25mCg TAB PO SCH ×2 (09:43→11:45)
[2019-12-22] MEDS ORDERED: FUROSEMIDE 100 MG/10ML VIAL IV SCH (10:00)
[2019-12-22] MEDS: FUROSEMIDE INJECTION 100 MG in D5W 5% 100 ML IV SCH (10:17)
--- NOTE | 2019-12-22 10:47 | NUR ---
DR. GARCIA Provider/Hospitalist at bedside. GAVE UPDATE ON PT.
--- NOTE | 2019-12-22 12:00 | NUR ---
PT. RESTING WITH EYES CLOSED. NO SIGNS OF DISTRESS OR DISCOMFORT.
[2019-12-22] MEDS: NOREPINEPHRINE 8 MG/250ML KIT 250 ML IV SCH (13:00)
--- NOTE | 2019-12-22 16:30 | NUR ---
PT. HAD LG. LOOSE BROWN STOOL ON BEDPAN. SIDRA CARE DONE. TOLERATED WELL.
--- NOTE | 2019-12-22 17:30 | NUR ---
DR. FRANKS Provider/Hospitalist at bedside. GAVE UPDATE ON PT. NEW ORDER RECEIVED.
[2019-12-22] MEDS: ATORVASTATIN 20 MG TAB PO SCH (22:08)
--- NOTE | 2019-12-22 22:30 | NUR ---
SMALL PASTY BM X1
--- NOTE | 2019-12-22 22:45 | NUR ---
BED BATH WITH CHG WIPES, SIDRA CARE, HWANG CARE, ORAL CARE, AND PARTIAL LINEN CHANGE COMPLETED
--- NOTE | 2019-12-22 23:05 | NUR ---
SCHEDULED INSULIN GIVEN EARLY - PATIENT REQUESTING TO SLEEP
--- NOTE | 2019-12-22 23:32 | NUR ---
SCHEDULED LACTULOSE HELD: PATIENT WITH 1 BM FOR SOCIAL SCIENCES LECTURER, 4 BMs FOR DAY SHIFT, AND 3 BMs ON PREVIOUS NOC SHIFT.
--- NOTE | 2019-12-22 23:32 | NUR ---
ROUNDED: SLEEPING. EVEN AND UNLABORED BREATHING. VSS. WILL CONT CARE
[2019-12-23] VITALS (79 sets, daily range): BP systolic 98–128; BP diastolic 29–69
--- NOTE | 2019-12-23 01:44 | NUR ---
SMALL-MODERATE CLEAR LIQUID BM
--- NOTE | 2019-12-23 04:13 | NUR ---
ROUNDED: SLEEPING. EVEN AND UNLABORED BREATHING. VSS. WILL CONT CARE
[2019-12-23] MEDS: MIDODRINE HCL 10 MG TAB PO SCH ×3 (05:35→17:58)
[2019-12-23] MEDS: LACTULOSE 20Gm/30ML SOLN PO SCH (05:35)
[2019-12-23] MEDS: InsuLIN REG 1unit/0.01ml Soln (100units/ml) SC SCH ×3 (05:45→17:56)
[2019-12-23] MEDS: ACCU-CHEK COMFORT CURVE STRIP VI SCH ×3 (05:45→17:55)
[2019-12-23 05:52] LABS: Basophils # (auto) 0 10 ^3/uL (0-0.2); Eosinophils # (auto) 0.1 10 ^3/uL (0-0.8); Eosinophils % (auto) 1.4 % (0.0-7.0); Hemoglobin 8.1 g/dL (12.2-16.2); Lymphocytes # (auto) 0.5 10 ^3/uL (0.4-5.4); Mean Corpuscular Volume 100.2 fL (80.0-100.0); Monocytes # (auto) 0.6 10 ^3/uL (0-1.3); Neutrophils # (auto) 4.7 10 ^3/uL (1.6-8.6); Nucleated Red Blood Cells % 0.1 %
[2019-12-23 05:56] LABS: Hematocrit 24.2 % (36.0-46.0); Lymphocytes % (auto) 8.1 % (10.0-50.0); Mean Corpuscular Hemoglobin 33.4 pg (28.0-32.0); Mean Corpuscular Hgb Conc. 33.4 g/dL (32.0-36.0); Monocytes % (auto) 10.6 % (0.0-12.0); Neutrophils % (auto) 79.9 % (37.0-80.0); Platelet Count (auto) 59 10^3/uL (140-450); Red Blood Cells 2.41 10^6/uL (4.0-5.20); Red Cell Distribution Width 19.2 % (11.8-14.3); White Blood Cell 5.9 10^3/uL (4.4-10.8)
[2019-12-23 06:00] LABS: Potassium 3.3 mmol/L (3.5-5.1)
[2019-12-23 06:08] LABS: Albumin 2.4 g/dL (3.4-5.0); BUN/Creatinine Ratio 23.9; Bilirubin, Total 0.9 mg/dL (0.2-1.0); Calcium 9.2 mg/dL (8.5-10.1); Total Protein 6.2 g/dL (6.4-8.2)
--- NOTE | 2019-12-23 06:49 | NUR ---
SMALL BM X1
--- NOTE | 2019-12-23 07:19 | NUR ---
REPORT AND CARE ENDORSED TO MARI AGUADALUPE REINOSO
--- NOTE | 2019-12-23 07:50 | NUR ---
ASSESS- PT. LYING IN BED AWAKE, ALERT AND ORIENTED TIMES FOUR. DENIES ANY PAIN OR DISCOMFORT. LUNGS CLEAR ALDA. INSPIRATORY AND EXPIRATORY. NO SOB. O2 2L N/C. ABD. SOFT, FLAT, NON-TENDER. BOWEL SOUNDS ALL FOUR QUADRANTS. NO N/V. F/C TO GRAVITY WITH CLEAR YELLOW URINE. RADIAL PULSES STRONG, PALPABLE ALDA. DORSALIS PEDAL PULSES STRONG, PALPABLE ALDA. NO EDEMA. PICC GURVINDER TLC INTACT. LASIX GTT. AT 4MG./HR. AND LEVOPHED GTT. AT 4 MCG. SKIN INTACT. OPTIFOAM TO SACRUM, PINK BLANCHABLE SKIN. BETWEEN THIGHS WITH ERYTHEMA. SCD'S ALDA. LE.
[2019-12-23] MEDS: FERROUS SULFATE 325 MG TAB PO SCH ×3 (08:00→17:58)
--- NOTE | 2019-12-23 08:10 | NUR ---
O2 SATS DECREASED TO 87% WITH GOOD PLETH ON O2 2L N/C. NO SOB. RR TEENS. NO SIGNS OF RESP. DISTRESS. PT. EATING BREAKFAST. INCREASED O2 TO 3L N/C. O2 SATS INCREASED TO LOW TO MID 90'S. WILL CONTINUE TO MONITOR.
--- NOTE | 2019-12-23 08:15 | NUR ---
PLACED PT. ON BEDPAN AND HAD SM. LOOSE BROWN STOOL. SIDRA CARE DONE. TOLERATED WELL.
[2019-12-23] MEDS ORDERED: POTASSIUM EFFERVESENT TAB 25 MEQ PO ONE (09:00)
[2019-12-23] MEDS: PANTOPRAZOLE 40 MG TAB PO SCH (09:25)
[2019-12-23] MEDS: CHOLECALCIFEROL (VITD3) 1,000UNIT=25mCg TAB PO SCH (09:25)
[2019-12-23] MEDS: levoFLOXacin 250 MG TAB PO SCH (09:25)
[2019-12-23] MEDS: SODIUM CHLOR 0.9% PF (SALINE LOCK) 10ML VIAL/SYR IV SCH ×2 (09:26→22:19)
[2019-12-23] MEDS: FUROSEMIDE INJECTION 100 MG in D5W 5% 100 ML IV SCH (09:27)
--- NOTE | 2019-12-23 10:30 | NUR ---
PT. HAD LG. LOOSE BROWN STOOL ON BEDPAN. SIDRA CARE DONE AND LINENS CHANGED. PLACED TRIAD CREAM TO INNER TIGHS AND BUTTOCKS.
--- NOTE | 2019-12-23 10:30 | NUR ---
DR. GARCIA Provider/Hospitalist at bedside. GAVE UPDATE ON PT.
[2019-12-23] MEDS: NOREPINEPHRINE 8 MG/250ML KIT 250 ML IV SCH (12:37)
--- NOTE | 2019-12-23 14:40 | NUR ---
PT. PLACED ON BEDPAN AND HAD SM. LIQUID BROWN/GREEN STOOL. SIDRA CARE DONE.
--- NOTE | 2019-12-23 14:45 | NUR ---
DR. FRANKS Provider/Hospitalist at bedside. GAVE UPDATE ON PT.
--- NOTE | 2019-12-23 14:55 | NUR ---
IV removal IV DC'd with clean sterile technique, catheter fully intact. Pressure dressing applied to site. Patient tolerated well. NOTE: IV H.L.20G. LFA.
--- NOTE | 2019-12-23 17:00 | NUR ---
PT. RESTING WITH EYES CLOSED. NO SIGNS OF DISTRESS OR DISCOMFORT.
--- NOTE | 2019-12-23 20:00 | NUR ---
AWAKE AND ALERT PLEASANT FEMALE, DENIES ANY DISCOMFORT, VITAL SIGNS STABLE WITH LEVOPHED GTT AT 2.9MCG/MIN, LASIX DRIP AT 4MG/HR, U/O FAIR, SEE INTERVENTIONS FOR HEAD TO TOE ASSESSMENT AND VITAL SIGNS
[2019-12-23] MEDS: ATORVASTATIN 20 MG TAB PO SCH (22:18)
[2019-12-24] VITALS (79 sets, daily range): BP systolic 84–127; BP diastolic 30–100
[2019-12-24] MEDS: NOREPINEPHRINE 8 MG/250ML KIT 250 ML IV SCH ×2 (02:09→02:17)
[2019-12-24] MEDS: InsuLIN REG 1unit/0.01ml Soln (100units/ml) SC SCH ×4 (06:00→18:32)
--- NOTE | 2019-12-24 06:00 | NUR ---
PT HAD AN UNEVENTFUL NIGHT, LEVOPHED REMAINS AT 3MCG/MIN, AND LASIX GTT AT 4MG/HR, U/O 600ML/SHIFT, NO BM'S
[2019-12-24] MEDS: MIDODRINE HCL 10 MG TAB PO SCH ×3 (06:16→18:09)
[2019-12-24] MEDS: ACCU-CHEK COMFORT CURVE STRIP VI SCH ×4 (06:18→18:09)
--- NOTE | 2019-12-24 07:40 | NUR ---
OPENING NOTE SHIFT REPORT RECEIVED AND ASSUMED CARE OF PT FROM DOMONIQUE REINOSO
[2019-12-24] MEDS: FERROUS SULFATE 325 MG TAB PO SCH ×3 (08:25→18:09)
[2019-12-24 08:53] LABS: Basophils # (auto) 0 10 ^3/uL (0-0.2); Basophils % (auto) 0.1 % (0.0-2.0); Eosinophils # (auto) 0.1 10 ^3/uL (0-0.8); Eosinophils % (auto) 1.2 % (0.0-7.0); Hematocrit 25.2 % (36.0-46.0); Hemoglobin 8.5 g/dL (12.2-16.2); Lymphocytes # (auto) 0.5 10 ^3/uL (0.4-5.4); Lymphocytes % (auto) 8.6 % (10.0-50.0); Mean Corpuscular Hemoglobin 33.6 pg (28.0-32.0); Mean Corpuscular Hgb Conc. 33.6 g/dL (32.0-36.0); Mean Corpuscular Volume 100.2 fL (80.0-100.0); Monocytes # (auto) 0.7 10 ^3/uL (0-1.3); Monocytes % (auto) 12.2 % (0.0-12.0); Neutrophils # (auto) 4.5 10 ^3/uL (1.6-8.6); Neutrophils % (auto) 77.9 % (37.0-80.0); Platelet Count (auto) 65 10^3/uL (140-450); Red Blood Cells 2.52 10^6/uL (4.0-5.20); Red Cell Distribution Width 19.5 % (11.8-14.3); White Blood Cell 5.8 10^3/uL (4.4-10.8)
[2019-12-24 09:13] LABS: BUN/Creatinine Ratio 22.7; Calcium 8.6 mg/dL (8.5-10.1); Potassium 3.7 mmol/L (3.5-5.1)
[2019-12-24] MEDS: levoFLOXacin 250 MG TAB PO SCH (10:11)
[2019-12-24] MEDS: CHOLECALCIFEROL (VITD3) 1,000UNIT=25mCg TAB PO SCH (10:11)
[2019-12-24] MEDS: PANTOPRAZOLE 40 MG TAB PO SCH (10:11)
[2019-12-24] MEDS: SODIUM CHLOR 0.9% PF (SALINE LOCK) 10ML VIAL/SYR IV SCH ×2 (10:12→22:06)
[2019-12-24] MEDS: LACTULOSE 20Gm/30ML SOLN PO SCH (10:12)
--- NOTE | 2019-12-24 11:30 | NUR ---
DR. ESTRADA AT BEDSIDE NO NEW ORDERS AT THIS TIME. PHYSICIAN AWARE OF AMMONIA LEVEL FOR TODAY. WILL CONTINUE TO MONITOR
[2019-12-24] MEDS: FUROSEMIDE INJECTION 100 MG in D5W 5% 100 ML IV SCH (12:18)
--- NOTE | 2019-12-24 17:00 | NUR ---
LEVOPHED TURNED OFF
--- NOTE | 2019-12-24 19:30 | NUR ---
CLOSING NOTE SHIFT REPORT GIVEN AND CARE ENDORSED TO BENNY REINOSO
--- NOTE | 2019-12-24 20:00 | NUR ---
ADMITTED WITH DYSPNEA, WHEEZING AND PLEURAL EFFUSIONS. THORACENTESIS ON 12/17/19 AND 12/18/19. PLACED ON A LASIX DRIP AT 4.4 MG/HR. NOT DIURESING. ALERT.ORIENTED. LUNGS CLEAR. 3LNP. NO DYSPNEA WHEN SHE PULLED HERSELF UP IN BED. HICKS WELL. NO EDEMA. ALL PULSES STRONG AND PALPABLE. DOING WELL WITH DIET. HWANG IN PLACE DRAINING CLEAR YELLOW LIQUID TO DOWN DRAIN BAG. ON A FLUID RESTRICTION OF 1000CC. PATIENT IS AWARE OF HER LIMITATIONS. HAS A CUP OF ICE THAT SHE USES WHEN SHE IS THIRSTY. BP STABLE. OFF LEVOPHED SINCE 1700. USES BEDPAN SUCCESSFULLY
--- NOTE | 2019-12-24 22:00 | NUR ---
TOOK MEDICATION WELL. DENIES PAIN, NAUSEA, OR DYSPNEA. IV SHOWS NO REDNESS OR SWELLING AT SITE. NSR WITHOUT ECTOPY. CONTINUES ON LASIX DRIP
[2019-12-24] MEDS: ATORVASTATIN 20 MG TAB PO SCH (22:06)
[2019-12-25] VITALS (62 sets, daily range): BP systolic 88–124; BP diastolic 31–85
--- NOTE | 2019-12-25 | NUR ---
CONTINUES TO DENY PAIN, NAUSEA OR DYSPNEA EXCEPT ON EXERTION. LUNGS CLEAR. O2 SAT 98%. NOT DIURESING. ONLY 140CC OF URINE SO FAR. HICKS WELL. IV SITE CLEAN AND DRY. NSR WITHOUT ECTOPY. LASIX DRIP 4.4 MG/HR
--- NOTE | 2019-12-25 02:00 | NUR ---
AWAKE. RESTING QUIETLY. BLEW NOSE, SECRETIONS WERE CLEAR WITH A BLOOD STREAK. LUNGS CLEAR. O2 SAT 99%. RR 20. TAKING ICE CHIPS. LEFT FOREARM: MODERATE AREA OF REDNESS. HICKS WELL. ONLY ONE STOOL THIS SHIFT SO FAR.
--- NOTE | 2019-12-25 05:00 | NUR ---
CHG AND COMPLETE BED CHANGE
[2019-12-25 05:11] LABS: Basophils # (auto) 0 10 ^3/uL (0-0.2); Basophils % (auto) 0.3 % (0.0-2.0); Eosinophils # (auto) 0 10 ^3/uL (0-0.8); Eosinophils % (auto) 0.8 % (0.0-7.0); Hemoglobin 8.1 g/dL (12.2-16.2); Lymphocytes # (auto) 0.4 10 ^3/uL (0.4-5.4); Mean Corpuscular Hemoglobin 33.9 pg (28.0-32.0); Mean Corpuscular Hgb Conc. 33.6 g/dL (32.0-36.0); Monocytes # (auto) 0.5 10 ^3/uL (0-1.3); Monocytes % (auto) 10.9 % (0.0-12.0); Neutrophils # (auto) 3.7 10 ^3/uL (1.6-8.6); Platelet Count (auto) 41 10^3/uL (140-450); Red Blood Cells 2.38 10^6/uL (4.0-5.20); Red Cell Distribution Width 19.8 % (11.8-14.3); White Blood Cell 4.6 10^3/uL (4.4-10.8)
[2019-12-25 05:29] LABS: BUN/Creatinine Ratio 21.8; Calcium 8.3 mg/dL (8.5-10.1); Potassium 3.6 mmol/L (3.5-5.1)
[2019-12-25] MEDS: ACCU-CHEK COMFORT CURVE STRIP VI SCH ×4 (06:00→17:34)
[2019-12-25] MEDS: MIDODRINE HCL 10 MG TAB PO SCH ×3 (06:00→17:50)
[2019-12-25] MEDS: InsuLIN REG 1unit/0.01ml Soln (100units/ml) SC SCH ×4 (06:00→17:51)
--- NOTE | 2019-12-25 06:00 | NUR ---
AWAKE. WATCHING TV. LUNGS CLEAR. 3LNP. NO DYSPNEA. ONLY 350CC PER HWANG. LASIX DRIP 4.4 MG /HR. NSR WITHOUT ECTOPY. IV SITE CLEAN AN DRY.
[2019-12-25] MEDS: FUROSEMIDE INJECTION 100 MG in D5W 5% 100 ML IV SCH (07:43)
[2019-12-25] MEDS: FERROUS SULFATE 325 MG TAB PO SCH ×3 (08:13→17:50)
[2019-12-25] MEDS: SODIUM CHLOR 0.9% PF (SALINE LOCK) 10ML VIAL/SYR IV SCH ×2 (09:53→22:07)
[2019-12-25] MEDS: LACTULOSE 20Gm/30ML SOLN PO SCH (09:53)
[2019-12-25] MEDS: levoFLOXacin 250 MG TAB PO SCH (09:53)
[2019-12-25] MEDS: PANTOPRAZOLE 40 MG TAB PO SCH (09:54)
[2019-12-25] MEDS: CHOLECALCIFEROL (VITD3) 1,000UNIT=25mCg TAB PO SCH (10:02)
[2019-12-25] MEDS ORDERED: POTASSIUM EFFERVESENT TAB 25 MEQ PO ONE (12:00)
--- NOTE | 2019-12-25 12:53 | NUR ---
DR. SHARPE PUT PLEUR X CATHATER TO RIGHT CHEST AREA, PATIENT TOLERATED WELL. PATIENT STARTER KIT PLACED IN PATIENTS ROOM.
[2019-12-25] MEDS: NOREPINEPHRINE 8 MG/250ML KIT 250 ML IV SCH (13:00)
[2019-12-25] MEDS: ONDANSETRON HCL 4 MG/2 ML VIAL IV PRN (13:30)
--- NOTE | 2019-12-25 14:42 | NUR ---
I faxed order and authorization request for pleurex catheter supplies to [facility]. I called [facility] [phone] and left message requesting the same-also which vendor to order from.
--- NOTE | 2019-12-25 15:24 | NUR ---
D/C Planning Per consult for home health plurex catheter maintenance and supplies. Forging Press Lever Tender Aide will follow up with patient medical group for supplies. Faxed clinical information to [facility]. Per Keira with [facility] patient has been accepted and service to start within 24-48hrs upon d/c day. Faxed clinical information to [facility] requesting authorization for home health. Per Ashleigh with [facility] authorization for [employer] is [id number]. Addendum: 12/25/19 at 1528 by JANN VELÁZQUEZ Amended: Links added.
--- NOTE | 2019-12-25 16:08 | NUR ---
assessment Patient is a 64 year old female who is alert and oriented. Patients cognitive abilities are intact. Prior to admission patient lived home with family and functioned with assistance. Per patient she will return home to her prior living arrangements post discharge and family will transport her home. Per patient she has 02 and fww for home use. Patient has no safety issues regarding returning home on discharge. Patients PCP is Dr France. Patient has a ss consult for home health and plurex drains. Edith SW 1 will satisfy order. I informed patient she has a right to speak to a social services technician regarding all care. I informed patient she has a right to participate in any and all discharge planning. Patient has a POA and advanced directive. Patient verbalized understanding and agreed to discharge plan. Addendum: 12/25/19 at 1610 by Holly RUIZ Amended: Links added.
--- NOTE | 2019-12-25 18:30 | NUR ---
DR. ESTRADA HERE TO SEE PATIENT. SEE MD NOTES AND EMR FOR ANY NEW ORDERS.
--- NOTE | 2019-12-25 20:00 | NUR ---
SPOKE WITH DR ENAMORADO. PATIENT HAS TRANSFER ORDERS TO TELEMETRY BUT THE PLAN IS FOR HIM TO PLACE A PLEURX TUBE ON THE LEFT TOMORROW IN AM. HOLDING TRANSFER TILL AFTER THE PLEURX IS PLACED. TAKEN OFF BEDPAN. HAD A LARGE DARK BROWN LOOSE STOOL. ON LACTULOSE. AMMONIA LEVEL LOWER TODAY. ALERT. ORIENTED. SPEECH CLEAR. ALBANIAN/MONGOLIAN SPEAKING PATIENT. NSR WITHOUT ECTOPY. PICC LINE RIGHT UPPER ARM. ABDOMEN SOFT. GLUTEAL REDNESS AND ANTERIOR SIDRA AREA/BETWEEN LEGS MACERATION WITH THE TOP LAYER OF SKIN RUBBED OFF. SIDRA WASH USED. PATIENT DRIED AND Z GUARD APPLIED.ALL PULSES PALPABLE. MOVES WELL IN BED. ATE 75% OF DINNER. FLUID RESTRICTION 1000CC /24 HOURS. LEVOPHED HAS NOW BEEN OFF SINCE 1700 YESTERDAY. CONTINUES ON LASIX DRIP AT 4.4 MG/HR. ON MIDODRINE.
--- NOTE | 2019-12-25 22:00 | NUR ---
PICC LINE DRESSING CHANGE. SITE SHOWS NO REDNESS, SWELLING OR DRNG. TOOK LIPITOR. DOING WELL WITH FLUID RESTRICTION. DENIES PAIN. HOB ELEVATED. WATCHING TV. RIGHT PLEURX DRESSING SHOW A LARGE AMOUNT OF RED DRNG.
[2019-12-25] MEDS: ATORVASTATIN 20 MG TAB PO SCH (22:07)
[2019-12-26] VITALS (48 sets, daily range): BP systolic 83–121; BP diastolic 35–73
--- NOTE | 2019-12-26 | NUR ---
UNCHANGED. NSR WITHOUT ECTOPY. LUNGS CLEAR. 3LNP . RIGHT PLEURX TUBE DRESSING SATURATED WITH BLOOD. PLEURX TUBE CLAMPED. ALERT. ORIENTED. SPEECH CLEAR. ABDOMEN SOFT. HICKS WELL. HWANG IN PLACE. LASIX DRIP. LOW URINE OUTPUT
[2019-12-26] MEDS: ACCU-CHEK COMFORT CURVE STRIP VI SCH ×4 (00:27→17:52)
[2019-12-26] MEDS: InsuLIN REG 1unit/0.01ml Soln (100units/ml) SC SCH ×4 (00:28→18:00)
[2019-12-26] MEDS ORDERED: NOREPINEPHRINE 8 MG/250ML KIT 250 ML IV SCH (00:58)
--- NOTE | 2019-12-26 01:09 | NUR ---
SBP LOW WHILE SLEEPING. LEVOPHED RESTARTED.
--- NOTE | 2019-12-26 04:00 | NUR ---
RIGHT PLEURX DRESSING CHANGED AND SECURED. VSS. DECREASED THE LEVOPHED. NSR WITHOUT ECTOPY. BBB. TAKING ICE CHIPS. IV SITE SHOWS NO REDNESS, SWELLING OR DRNG.
[2019-12-26] MEDS: FUROSEMIDE INJECTION 100 MG in D5W 5% 100 ML IV SCH (04:34)
[2019-12-26] MEDS: MIDODRINE HCL 10 MG TAB PO SCH ×3 (05:56→17:54)
--- NOTE | 2019-12-26 08:00 | NUR ---
AWAKE AND ALERT. C/O PAIN RT SIDE AT SITE OF PLEURIX WHEN SHE TAKES A DEEP BREATH. PLEURIX SITE RT AXILLARY LINE WITH INTACT DRESSING, COVERED WITH TEGADERM WITH OLD BLOODY DRAINAGE. MOVEMENT IS NOT LIMITED. AREAS OF ECCHYMOSIS DISTAL TO SITE. PICC SECURE RT UPPER ARM. SEE FULL ASSESSMENT
--- NOTE | 2019-12-26 09:30 | NUR ---
ASSISTED OOB TO COMMODE. BORE FULL WT. TOOK FEW STEPS TO COMMODE AND SAT FOR SM BM. NO C/O DIZZINESS.
[2019-12-26] MEDS: PANTOPRAZOLE 40 MG TAB PO SCH (10:05)
[2019-12-26] MEDS: FERROUS SULFATE 325 MG TAB PO SCH ×3 (10:05→17:52)
[2019-12-26] MEDS: levoFLOXacin 250 MG TAB PO SCH (10:05)
[2019-12-26] MEDS: CHOLECALCIFEROL (VITD3) 1,000UNIT=25mCg TAB PO SCH (10:06)
[2019-12-26] MEDS: LACTULOSE 20Gm/30ML SOLN PO SCH (10:08)
[2019-12-26] MEDS: SODIUM CHLOR 0.9% PF (SALINE LOCK) 10ML VIAL/SYR IV SCH ×2 (10:08→21:33)
[2019-12-26 11:20] LABS: BUN/Creatinine Ratio 19.9; Potassium 4.3 mmol/L (3.5-5.1)
--- NOTE | 2019-12-26 13:00 | NUR ---
OOB TO COMMODE FOR LG FORMED STOOL. ZURDO WELL, NO DIZZINESS
--- NOTE | 2019-12-26 13:30 | NUR ---
DR. ENAMORADO IN TO INSERT PLEURIX LT AXILLARY LINER. PT ZURDO PROCEDURE WELL. 1100ML PINK PLEURAL FLUID. NO DYSPNEA
--- NOTE | 2019-12-26 14:51 | NUR ---
I received a call from [facility] letting me know that the Pleurex catheter supplies can be ordered from [facility] phone # [phone] option 7-----fax # [phone]. I faxed order to [facility] as well as to [facility] from [facility] to follow up with the pharmacy regarding authorization.
--- NOTE | 2019-12-26 15:18 | NUR ---
Nutrition Follow-up Wt.: 85.6 kg Pt currently of CCHO 60g, Cardiac diet with 1000 ml FR. Appetite continues to be poor aeb avg 57% PO intake. Encouraged pt to increase PO intake. Will continue to monitor PO intake, skin status, pertinent labs and weight trends. Will f/u in 3 to 5 days. Est. Energy Needs: 3089-8491 kcal (18-22 kcal/kg BW). Est. Protein Needs: 68-85 gms/day (0.8-1.0 gms/kg BW). Labs 12/24: Anion gap 3 l, BUN 45 H, Cr 2.06 H, Glucose 186 H, POC 269 H, Ca 8.3 L, ammonia 49 H Skin: Shailesh scale 15, mod risk, blanchable redness to medial sacrum. GI: Pt had BM on 12/26/19 per audio visual facilities engineer. PES: 1) Altered nutrition related lab values r/t current medical condition aeb hyperglycemia, hyponatremia, elevated RFTs 2) Inadequate energy intake r/t decreased appetite aeb avg PO intake 56% over 5 meals Recommendations: 1) Provide close supervision and feeding assistance prn during meals. 2) If PO intake trends <50%, provide Glucerna for nutritional supplement BID 3) Continue current plan of care.
--- NOTE | 2019-12-26 16:15 | NUR ---
BED ASSIGNMENT REC'D [id number] JESUS Guaman PLACED ON TELE #[id number]
--- NOTE | 2019-12-26 16:32 | NUR ---
REPORT CALLED TO JESUS Guaman
[2019-12-26] MEDS: ACETAMINOPHEN 500 MG TAB PO PRN (16:54)
--- NOTE | 2019-12-26 17:10 | NUR ---
TRANSFER TO BED 208 VIA WC WITH ALL BELONGINGS. PAIN RT SIDE STILL 5/10 AFTER TYLENOL GIVEN AT 1700
--- NOTE | 2019-12-26 17:26 | NUR ---
ICU patient trans to floor Verbal report received from KEMAR Noel. MAHESHLUCY transferred to 208 via wheelchair on cardiac specialist, Tele# 35, running sinus rhythm @ 74 bpm. O2 @ 2 LPM via nasal cannula with sats @ 96%. Right upper arm triple lumen PICC line with dressing clean, dry an intact, all ports flushed, patent with positive blood return, Lasix GTT @ 4.4 ml/hr to red port. Bilateral flank Pleurx drains in place with dressing to left flank clean dry and intact and right flank dressing with moderate bright red drainage, intact. Urethral Magdaleno catheter draining cloudy, yellow urine to gravity. Optifoam to sacrum with blanchable redness. Bilateral SCD's in place. All personal belongings transferred with patient to receiving floor.
--- NOTE | 2019-12-26 19:03 | NUR ---
Care endorsed to KEMAR Lezama, night nurse.
--- NOTE | 2019-12-26 19:34 | NUR ---
Opening Shift Note Received report and assumed care of patient. Patient is awake and alert. No signs or symptoms of distress noted, patient currently denies pain. Instructed patient on plan of care and to call for assistance as needed. Will continue to monitor.
[2019-12-26] MEDS: ATORVASTATIN 20 MG TAB PO SCH (21:34)
[2019-12-27] MEDS: ACCU-CHEK COMFORT CURVE STRIP VI SCH ×3 (00:32→11:39)
[2019-12-27] MEDS: InsuLIN REG 1unit/0.01ml Soln (100units/ml) SC SCH ×3 (00:33→11:40)
[2019-12-27 05:30] VITALS: BP 99/52
[2019-12-27] MEDS: MIDODRINE HCL 10 MG TAB PO SCH ×2 (05:49→11:38)
[2019-12-27] MEDS: FUROSEMIDE INJECTION 100 MG in D5W 5% 100 ML IV SCH (07:03)
[2019-12-27] MEDS: FERROUS SULFATE 325 MG TAB PO SCH ×2 (07:53→11:38)
--- NOTE | 2019-12-27 08:00 | NUR ---
Opening Shift Note Assumed care of patient, awake, alert and oriented X4. No S/S of distress/SOB, complains of left posterior flank pain, 10/10, but refuses to take pain medication, verbalized she can tolerate it. Tele# 35, sinus rhythm @ 72 bpm. Right upper arm triple lumen PICC with dressing clean dry and intact, all ports flushed with positive blood return. Bilateral posterior flank pleural drains with dressings in place. Bilateral SCD's in place. Instructed on POC and to call for assist PRN, verbalized understanding. Bed locked, in lowest position, call light within reach, will continue to monitor for changes Q1hr and PRN.
[2019-12-27 08:54] VITALS: BP 96/48
[2019-12-27] MEDS: LACTULOSE 20Gm/30ML SOLN PO SCH (10:03)
[2019-12-27] MEDS: SODIUM CHLOR 0.9% PF (SALINE LOCK) 10ML VIAL/SYR IV SCH (10:03)
[2019-12-27] MEDS: CHOLECALCIFEROL (VITD3) 1,000UNIT=25mCg TAB PO SCH (10:08)
[2019-12-27] MEDS: levoFLOXacin 250 MG TAB PO SCH (10:08)
[2019-12-27] MEDS: PANTOPRAZOLE 40 MG TAB PO SCH (10:08)
[2019-12-27] MEDS: ACETAMINOPHEN 500 MG TAB PO PRN (11:02)
[2019-12-27 13:00] VITALS: BP 100/47
--- NOTE | 2019-12-27 13:06 | NUR ---
1000 ML OF PLEURAL FLUID DRAIN FROM RT CHEST VIA PLEURX DRAIN. PT TOLERATED WELL
[2019-12-27 16:01] VITALS: BP 96/48
--- NOTE | 2019-12-27 18:12 | NUR ---
Discharge instructions given as ordered. Encourage to follow up with PMD as instructed. All questions and concerns addressed. Patient verbalized understanding. Medication reconciliation form completed and copy given to patient. IV removed with catheter intact, pressure dressing applied. Telemetry unit returned to ICU. Patient taken to vehicle via wheelchair with all personal belongings, accompanied by staff member. No distress noted at time of departure.
== END 2019-12-27 18:30 | disposition home health service (06) | DRG 133 ==
LOC: ER 08:15 → EDBD 08:15 → EDUNIT# 08:15 → TELE 08:16 → DOU IN ICU 18:50 → ICU WEST 12-20 14:30 → TELE-CENTR 12-26 17:13
PROVIDERS: ADMIT Internal Medicine; ATTEND Internal Medicine
PROC: 0W9B3ZZ Drainage of Left Pleural Cavity, Percutaneous Approach (ICD-10-PCS; 2019-12-17)
PROC: 0W993ZZ Drainage of Right Pleural Cavity, Percutaneous Approach (ICD-10-PCS; 2019-12-18)
PROC: 0W9930Z Drainage of Right Pleural Cavity with Drainage Device, Percutaneous Approach (ICD-10-PCS; 2019-12-25)
PROC: 02HV33Z Insertion of Infusion Device into Superior Vena Cava, Percutaneous Approach (ICD-10-PCS; 2019-12-25)
PROC: 0W9B30Z Drainage of Left Pleural Cavity with Drainage Device, Percutaneous Approach (ICD-10-PCS; principal; 2019-12-26)
DX: J96.02 Acute respiratory failure with hypercapnia (principal); N17.0 Acute kidney failure with tubular necrosis; E43 Unspecified severe protein-calorie malnutrition; G93.41 Metabolic encephalopathy; I50.23 Acute on chronic systolic (congestive) heart failure; I85.00 Esophageal varices without bleeding; I95.9 Hypotension, unspecified; I13.0 Hypertensive heart and chronic kidney disease with heart failure and stage 1 through stage 4 chronic kidney disease, or unspecified chronic kidney disease; I11.0 Hypertensive heart disease with heart failure; J96.01 Acute respiratory failure with hypoxia; J91.8 Pleural effusion in other conditions classified elsewhere; N18.3 Chronic kidney disease, stage 3 (moderate); K76.6 Portal hypertension; K74.60 Unspecified cirrhosis of liver; J44.9 Chronic obstructive pulmonary disease, unspecified; D72.829 Elevated white blood cell count, unspecified; Z68.29 Body mass index [BMI] 29.0-29.9, adult
CPT/HCPCS: 10022; 32555; 36415; 36569; 36600; 71045; 76700; 76775; 76942; 80048; 80053; 81001; 82140; 82570; 82805; 82962; 83605; 83880; 84300; 84484; 85025; 85610; 85730; 87040; 87081; 87205; 93005; 94660; 96361; 96365; 96375; 99291; G0378; J1815; J2405; J7060; P9047

== ENCOUNTER 2020-01-04 19:37 | Inpatient (IN) | payer MEDICAID ==
[~2020-01-04] VITALS: Ht 167.6 cm; Wt 99.8 kg
[2020-01-04] MEDS: ALBUMIN 25% 50 ML IV SCH ×3 (06:00→22:00)
[~2020-01-04 19:37] MED LIST changes: +BUME1TAB3 PO; -BUME2TAB5 PO
[2020-01-04] MEDS ORDERED: EPINEPHrine HCL 1 MG/10 ML SYRG IV ONE ×4 (20:03→20:13)
[2020-01-04] MEDS ORDERED: SODIUM BICARBONATE 8.4 % INJ 50ML VIAL IV ONE ×3 (20:06→22:30)
[2020-01-04] MEDS ORDERED: ROCURONIUM 10MG/ML 10ML VIAL IV ONE ×2 (20:17→20:22)
[2020-01-04] MEDS ORDERED: LORazepam 2MG/ML-1ML VIAL ONE (20:17)
[2020-01-04] MEDS ORDERED: LORazepam 2MG/ML-1ML VIAL IV ONE ×2 (20:18→20:30)
[2020-01-04] MEDS ORDERED: NOREPINEPHRINE 8 MG/250ML KIT 250 ML IV SCH (20:18)
[2020-01-04] MEDS ORDERED: MIDAZOLAM DRIP 50 mg/50mL 50 ML IV ONE (20:20)
[2020-01-04] MEDS ORDERED: MIDAZOLAM DRIP 50 mg/50mL 50 ML IV SCH (20:21)
[2020-01-04] MEDS ORDERED: SODIUM CHLORIDE 0.9% 3,000 ML IV ONE (20:30)
[2020-01-04] MEDS ORDERED: NOREPINEPHRINE 8 MG/250ML KIT 250 ML IV ONE (21:14)
[2020-01-04 21:25] LABS: Mean Corpuscular Volume 118.9 fL (80.0-100.0); Platelet Count (auto) 117 10^3/uL (140-450)
[2020-01-04 21:27] LABS: Hematocrit 29.7 % (36.0-46.0); Hemoglobin 8.4 g/dL (12.2-16.2); Mean Corpuscular Hemoglobin 33.6 pg (28.0-32.0); Mean Corpuscular Hgb Conc. 28.2 g/dL (32.0-36.0); White Blood Cell 12.4 10^3/uL (4.4-10.8)
[2020-01-04 21:29] LABS: Red Cell Distribution Width 21.8 % (11.8-14.3)
[2020-01-04 21:30] LABS: Basophils % (manual) 0 (0.0-2.0); Blast Cells 0; Eosinophils % (manual) 0 (0-7); Promyelocytes % 0; Reactive Lymphocytes 0
[2020-01-04] MEDS ORDERED: MORPHINE SULF INJ 2 MG/ML SYRINGE 1ML IV PRN (21:30)
[2020-01-04] MEDS ORDERED: NITROGLYCERIN 0.4 MG SL TAB SL PRN (21:30)
[2020-01-04] MEDS ORDERED: PHENYLEPHRINE IV 250 ML IV ONE (21:32)
[2020-01-04 21:35] LABS: Albumin 1.4 g/dL (3.4-5.0); Calcium 10.2 mg/dL (8.5-10.1); Potassium 5.1 mmol/L (3.5-5.1)
[2020-01-04] MEDS: PHENYLEPHRINE IV 250 ML IV SCH (21:40)
[2020-01-04 21:41] LABS: Bilirubin, Total 0.6 mg/dL (0.2-1.0); Total Protein 5.6 g/dL (6.4-8.2)
[2020-01-04 21:44] LABS: Band Neutrophils % (manual) 4; Lymphocytes % (manual) 12 (10.0-50.0); Metamyelocytes % 4; Monocytes % (manual) 2 (0-12); Myelocytes % 1
[2020-01-04] MEDS ORDERED: HYDROCORTISONE SOD SUCC 100 MG/2ML INJ VIAL IV ONE (21:45)
[2020-01-04 22:00] VITALS: BP 69/21
[2020-01-04] MEDS ORDERED: DOPamine 1600MCG/ML D5W 250 ML IV SCH (22:07)
[2020-01-04] MEDS ORDERED: VANCOMYCIN PER PHARMACY 0 MG IV SCH (22:15)
[2020-01-04] MEDS: FUROSEMIDE INJECTION 100 MG in D5W 5% 100 ML IV SCH (22:15)
[2020-01-04] MEDS ORDERED: DEXTROSE (50%) 50ML SYRG IV PRN (22:15)
[2020-01-04] MEDS ORDERED: ALBUMIN 5% 50 ML IV ONE (22:15)
[2020-01-04] MEDS ORDERED: DOBUTamine 1000MCG/ML 250 ML IV SCH (22:15)
[2020-01-04] MEDS ORDERED: VANCOMYCIN 1GM/250ML 250 ML IV ONE (22:45)
[2020-01-04 22:47] LABS: INR 2.31 (0.9-1.15)
[2020-01-04 22:52] LABS: Lactic Acid w/Reflex 21.2 mmol/L (0.4-2.0)
[2020-01-04 22:52] LABS: Partial Thromboplastin Time > 139.0 sec (23.64-32.05)
[2020-01-05] VITALS (12 sets, daily range): BP systolic 39–64; BP diastolic 14–36
[2020-01-05] MEDS: ALBUMIN 25% 50 ML IV SCH ×2 (00:05→08:54)
[2020-01-05] MEDS: ACCU-CHEK COMFORT CURVE STRIP VI SCH ×3 (00:05→08:30)
[2020-01-05] MEDS: InsuLIN REG 1unit/0.01ml Soln (100units/ml) SC SCH ×3 (00:14→08:30)
[2020-01-05] MEDS ORDERED: DOBUTamine 1000MCG/ML 250 ML IV SCH (01:30)
--- NOTE | 2020-01-05 02:23 | NUR ---
RT NOTE VENT CHECK COMPLETED. PT TOLERATING SETTINGS. DR WATSON AWARE OF VENT SETTINGS AND HAS NOT GIVEN ANY NEW ORDERS AT THIS TIME. DR WATSON IS AWARE THAT WE ARE NOT ABLE TO GET A GOOD ABG RESULT AND DR WATSON STATED THAT WE WILL TRY AGAIN LATER TO SEE IF WE GET A GOOD RESULT THEN. RN GILSON AT BEDSIDE. FAMILY IS AT BEDSIDE.
[2020-01-05 02:53] LABS: Basophils # (auto) 0 10 ^3/uL (0-0.2); Eosinophils # (auto) 0 10 ^3/uL (0-0.8); Eosinophils % (auto) 0.1 % (0.0-7.0); Lymphocytes # (auto) 0.9 10 ^3/uL (0.4-5.4); Monocytes # (auto) 0.2 10 ^3/uL (0-1.3); Neutrophils # (auto) 5.8 10 ^3/uL (1.6-8.6); Red Blood Cells 1.97 10^6/uL (4.0-5.20)
[2020-01-05 02:55] LABS: Basophils % (auto) 0.3 % (0.0-2.0); Hematocrit 23.6 % (36.0-46.0); Lymphocytes % (auto) 13.5 % (10.0-50.0); Mean Corpuscular Hemoglobin 33.9 pg (28.0-32.0); Mean Corpuscular Hgb Conc. 28.2 g/dL (32.0-36.0); Monocytes % (auto) 2.6 % (0.0-12.0); Neutrophils % (auto) 83.5 % (37.0-80.0); Nucleated Red Blood Cells % 2.6 %; Platelet Count (auto) 90 10^3/uL (140-450)
[2020-01-05 02:59] LABS: Hemoglobin 6.7 g/dL (12.2-16.2); Red Cell Distribution Width 21.4 % (11.8-14.3)
[2020-01-05] MEDS: FUROSEMIDE INJECTION 100 MG in D5W 5% 100 ML IV SCH ×2 (03:15→07:49)
[2020-01-05] MEDS ORDERED: VASOPRESSIN 20 UNIT/ML ONE ×2 (03:55→03:57)
[2020-01-05] MEDS ORDERED: PHENYLEPHRINE HCL 10 MG/ML VL ONE (03:57)
[2020-01-05] MEDS ORDERED: VASOPRESSIN 50 UNITS in D5W 5% 247.5 ML IV SCH (04:00)
[2020-01-05] MEDS ORDERED: HYDROCORTISONE SOD SUCC 100 MG/2ML INJ VIAL IV SCH (04:00)
[2020-01-05] MEDS ORDERED: PIPERACILLIN-TAZOB 2.25GM 50 ML IV SCH (06:00)
[2020-01-05] MEDS: PHENYLEPHRINE IV 250 ML IV SCH (06:17)
[2020-01-05 06:53] LABS: Calcium 7.7 mg/dL (8.5-10.1); Magnesium 3.5 mg/dL (1.6-2.6)
[2020-01-05 06:56] LABS: Bilirubin, Total 0.7 mg/dL (0.2-1.0); Total Protein 3.4 g/dL (6.4-8.2)
[2020-01-05] MEDS ORDERED: SODIUM BICARBONATE 8.4 % INJ 50ML VIAL IV ONE (08:03)
[2020-01-05 08:05] LABS: BUN/Creatinine Ratio 13.2
[2020-01-05] MEDS ORDERED: EPINEPHrine HCL INJECTION 4 MG in SODIUM CHL 0.9% 250 ML IV SCH (08:15)
[2020-01-05 08:26] LABS: Triglycerides 216 mg/dL (< 150)
[2020-01-05 08:35] LABS: HDL Cholesterol 6 mg/dL (40-59); LDL Cholesterol 30 mg/dL (< 100)
[2020-01-05 08:36] LABS: Cholesterol < 50 mg/dL (< 200)
[2020-01-05 08:37] LABS: Potassium 5.7 mmol/L (3.5-5.1)
[2020-01-05 08:41] LABS: Phosphorus 12.4 mg/dL (2.5-4.90)
[2020-01-05] MEDS ORDERED: CALCIUM GLUC 4.65meq/50ml D5AE 50 ML IV ONE (08:45)
[2020-01-05] MEDS ORDERED: SODIUM BICARBONATE 8.4% INJ 50ML SYRINGE IV ONE ×2 (08:45→14:38)
[2020-01-05] MEDS ORDERED: ALBUTEROL SULF 2.5 MG/0.5ML(0.5%) NEB SOLN NEB ONE (08:45)
[2020-01-05] MEDS ORDERED: DEXTROSE (50%) 50ML SYRG IV ONE (08:45)
[2020-01-05] MEDS ORDERED: InsuLIN REG 1unit/0.01ml Soln (100units/ml) IV ONE (08:45)
[2020-01-05 08:46] LABS: Hemoglobin 7.9 g/dL (12.2-16.2); White Blood Cell 2.9 10^3/uL (4.4-10.8)
[2020-01-05 08:48] LABS: Mean Corpuscular Hemoglobin 32.7 pg (28.0-32.0); Mean Corpuscular Hgb Conc. 29.4 g/dL (32.0-36.0); Mean Corpuscular Volume 111.1 fL (80.0-100.0); Platelet Count (auto) 59 10^3/uL (140-450); Red Blood Cells 2.43 10^6/uL (4.0-5.20); Red Cell Distribution Width 19.6 % (11.8-14.3)
[2020-01-05 08:56] LABS: Basophils % (manual) 0 (0.0-2.0); Blast Cells 0; Eosinophils % (manual) 0 (0-7); Promyelocytes % 0; Reactive Lymphocytes 0
[2020-01-05 09:20] LABS: Partial Thromboplastin Time 50.1 sec (23.64-32.05)
[2020-01-05 09:27] LABS: INR > 8.0 (0.9-1.15)
[2020-01-05 09:51] LABS: Band Neutrophils % (manual) 4; Lymphocytes % (manual) 36 (10.0-50.0); Metamyelocytes % 3; Monocytes % (manual) 9 (0-12); Myelocytes % 3
[2020-01-05] MEDS ORDERED: FAMOTIDINE (10MG/ML) 2ML VL IV SCH (10:00)
[2020-01-05] MEDS ORDERED: VANCOMYCIN 750mg/250ml 250 ML IV ONE (10:00)
[2020-01-05] MEDS ORDERED: ATROPINE SULF 1 MG/10ml SYR IV ONE ×2 (10:30→14:38)
[2020-01-05] MEDS ORDERED: SODIUM BICARBONATE 50ML VIAL 150 ML in SOD CHL 0.45% 1,000 ML IV ONE (10:30)
[2020-01-05] MEDS ORDERED: DOPamine 1600mCg/ml 400MG/250ml NSorD5 KIT/BAG IV ONE (14:38)
[2020-01-05] MEDS ORDERED: CALCIUM CHL(10%) 100MG/ML 10ML VIAL IV ONE (14:38)
[2020-01-05] MEDS ORDERED: EPINEPHrine HCL 1 MG/10 ML SYRG IV ONE (14:38)
== END 2020-01-05 10:34 | disposition expired | DRG 720 ==
LOC: EDBD 19:37 → ER 19:37 → TELE 19:38
PROVIDERS: ADMIT Hospitalist; ATTEND Hospitalist
PROC: 5A12012 Performance of Cardiac Output, Single, Manual (ICD-10-PCS; principal; 2020-01-04)
PROC: 5A1935Z Respiratory Ventilation, Less than 24 Consecutive Hours (ICD-10-PCS; 2020-01-04)
PROC: 0W9G3ZZ Drainage of Peritoneal Cavity, Percutaneous Approach (ICD-10-PCS; 2020-01-04)
PROC: 0BH17EZ Insertion of Endotracheal Airway into Trachea, Via Natural or Artificial Opening (ICD-10-PCS; 2020-01-04)
PROC: 05HM33Z Insertion of Infusion Device into Right Internal Jugular Vein, Percutaneous Approach (ICD-10-PCS; 2020-01-04)
PROC: B543ZZA Ultrasonography of Right Jugular Veins, Guidance (ICD-10-PCS; 2020-01-04)
PROC: 30233N1 Transfusion of Nonautologous Red Blood Cells into Peripheral Vein, Percutaneous Approach (ICD-10-PCS; 2020-01-05)
DX: A41.9 Sepsis, unspecified organism (principal); I21.4 Non-ST elevation (NSTEMI) myocardial infarction; J96.01 Acute respiratory failure with hypoxia; I46.9 Cardiac arrest, cause unspecified; K72.00 Acute and subacute hepatic failure without coma; N17.0 Acute kidney failure with tubular necrosis; D69.59 Other secondary thrombocytopenia; E11.22 Type 2 diabetes mellitus with diabetic chronic kidney disease; N18.3 Chronic kidney disease, stage 3 (moderate); R65.21 Severe sepsis with septic shock; G93.41 Metabolic encephalopathy; I50.21 Acute systolic (congestive) heart failure; E87.5 Hyperkalemia; I13.0 Hypertensive heart and chronic kidney disease with heart failure and stage 1 through stage 4 chronic kidney disease, or unspecified chronic kidney disease; E78.00 Pure hypercholesterolemia, unspecified; D50.0 Iron deficiency anemia secondary to blood loss (chronic); D75.89 Other specified diseases of blood and blood-forming organs; K70.31 Alcoholic cirrhosis of liver with ascites; Z66 Do not resuscitate; Z79.84 Long term (current) use of oral hypoglycemic drugs; Z79.899 Other long term (current) drug therapy; Z82.3 Family history of stroke; Z83.3 Family history of diabetes mellitus; Z86.73 Personal history of transient ischemic attack (TIA), and cerebral infarction without residual deficits; F10.10 Alcohol abuse, uncomplicated; Y90.9 Presence of alcohol in blood, level not specified
CPT/HCPCS: 31500; 36415; 36430; 36556; 36600; 71045; 76942; 80053; 80061; 80202; 82140; 82805; 82962; 83036; 83605; 83735; 83880; 84100; 84484; 85007; 85025; 85027; 85610; 85730; 86850; 86900; 86901; 86920; 87040; 87070; 87077; 87186; 87205; 92950; 93005; 94002; 99291; G0378; J0171; J0610; J1815; J2250; J2543; J7060